=== PATIENT | female | born 1940 | race Caucasian/White ===

== ENCOUNTER 2020-11-03 16:43 | Inpatient (IN) | payer MEDICARE, OTHER ==
--- NOTE | 2020-11-03 17:49 | ED ---
General Adult HPI - General Stated complaint: fall, rib pain Time Seen by Provider: 11/03/20 17:27 Source: patient, RN/MD (Spoke with transferring physician), EMS, old records reviewed (Review of chart from [place]) Mode of arrival: EMS Limitations: physical limitation - History of Present Illness Initial comments: Patient is a pleasant 79-year-old female presenting to the emergency department following a fall. Patient states incident occurred today at home and getting out of the bathtub. Patient landed on her right ribs. Patient was seen at [facility] and diagnosed with rib fractures. Patient still complains of discomfort. Patient denies any dyspnea. No headache or head injury. No abdominal pain. Patient denies any other areas of concern. Review of Systems ROS Statement: Those systems with pertinent positive or pertinent negative responses have been documented in the HPI. ROS Other: All systems not noted in ROS Statement are negative. Constitutional: Denies: fever Eyes: Denies: eye pain ENT: Denies: ear pain Respiratory: Denies: cough, dyspnea Cardiovascular: Reports: as per HPI Endocrine: Denies: fatigue Gastrointestinal: Denies: abdominal pain Genitourinary: Denies: dysuria Musculoskeletal: Denies: back pain Skin: Denies: rash Neurological: Denies: weakness Past Medical History Past Medical History: Atrial Fibrillation, Hyperlipidemia, Hypertension Past Drug Use History: None Reported General Exam Limitations: physical limitation General appearance: alert, in no apparent distress Head exam: Present: atraumatic, normocephalic Eye exam: Present: normal appearance, PERRL Neck exam: Present: normal inspection. Absent: tenderness Respiratory exam: Present: normal lung sounds bilaterally Cardiovascular Exam: Present: regular rate, normal rhythm GI/Abdominal exam: Present: soft. Absent: tenderness Extremities exam: Present: normal inspection, full ROM. Absent: tenderness Back exam: Present: tenderness (Right lower lateral rib region) Neurological exam: Present: alert Psychiatric exam: Present: normal affect, normal mood Skin exam: Present: normal color Course Vital Signs 11/03/20 17:24 Temperature 98.3 F Pulse Rate 66 Respiratory 20 Rate Blood Pressure 121/60 O2 Sat by Pulse 97 Oximetry Medical Decision Making - Medical Decision Making Case was discussed with Dr. Bolton who states because patient is not activated trauma she can be admitted to medicine. He states he will consult. Case also discussed with practitioner mario Wang for Dr. Maher, who will admit. Disposition Clinical Impression: Fall, Multiple rib fractures Disposition: ADMITTED IP TO THIS HOSP Is patient prescribed a controlled substance at d/c from ED?: No Referrals: Nonstaff,Physician [Primary Care Provider] - 1-2 days Decision Time: 17:59
[2020-11-03] MEDS ORDERED: ACETAMINOPHEN TAB 325 MG TAB PO PRN (18:00)
[2020-11-03] MEDS ORDERED: NALOXONE 0.4 MG/ML 1 ML VIAL IV PRN (18:00)
[2020-11-03] MEDS ORDERED: BACLOFEN 10 MG TAB PO PRN (19:07)
--- NOTE | 2020-11-03 20:03 | XR ---
EXAMINATION TYPE: XR chest 1V portable DATE OF EXAM: 11/03/2020 COMPARISON: NONE HISTORY: Short of breath TECHNIQUE: Maribell view FINDINGS: There is coarsening of the interstitial markings. There is no obvious heart failure. I see no pleural effusion. Heart appears enlarged. Thoracic aorta is atheromatous. There are chest leads. T here is plate fixing the left proximal humerus. There are multiple old right-sided rib fractures. IMPRESSION: Mild probably fibrosis. Mild cardiomegaly. No obvious heart failure.
[2020-11-03] MEDS: HYDROcodone/APAP 5-325MG 1 EACH TAB PO PRN (21:08)
--- NOTE | 2020-11-03 21:14 | HP ---
HISTORY AND PHYSICAL DATE OF SERVICE: 11/03/2020 CHIEF COMPLAINTS: Fall and right rib fracture. HISTORY OF PRESENT ILLNESS: This 79-year-old woman with a past medical history of hypertension, hyperlipidemia, history of atrial fibrillation, being followed by a primary physician elsewhere, was camping in [facility]. The patient apparently fell and hit her right side of the ribs and the right side of the chest. The patient was taken to [facility], where the patient was found to have multiple rib fractures. The patient is currently medicated, unable to give a coherent history. The patient was apparently trying to get out of the bathtub. Because of severe pain and other difficulties, the patient was sent to [facility] for further evaluation and treatment. The patient is unable to give a coherent history; most of the history is taken from my discussion with staff and discussion with the ER physician and review of the chart. PAST MEDICAL HISTORY: Atrial fibrillation, hypertension, hyperlipidemia. HOME MEDICATIONS: 1. Ultram 50 mg q.8. 2. Torsemide. 4. Cozaar. 5. Vimpat. 6. Crestor. 7. Toprol-XL. 8. Neurontin. 9. Lexapro. 10.Eliquis. 11.Lioresal. 13.Ecotrin. ALLERGIES: CORTISONE and PENICILLIN. Family history, social history, review of systems could not be taken. PHYSICAL EXAMINATION: Patient is stuporous, sedated with medication. Pulse 65, blood pressure 126/58, respiration 20, temperature 98.3, pulse ox 98% on room air. HEENT: Conjunctivae normal. Oral mucosa moist. NECK: No jugular venous distention. No carotid bruit. No lymph node enlargement. CARDIOVASCULAR: S1, S2 muffled. RESPIRATION: Breath sounds diminished at the bases. A few scattered rhonchi and crackles. ABDOMEN: Soft, obese, non-tender. LEGS: No edema. No swelling. NERVOUS SYSTEM: Nervous system could not be examined completely. SKIN: No ulcer, rash, bleeding. JOINTS: No active deforming arthropathy. LABS: Labs from previous hospital reviewed. ASSESSMENT: 1. Fall and multiple contusions as well as multiple right rib fractures with severe pain. 2. Change in mental status, metabolic encephalopathy, multifactorial. 3. Possible syncope, possibly vasovagal. Rule out seizure disorder. 4. History of atrial fibrillation. 5. Hypertension. 6. Left bundle branch block on EKG. 7. Hyperlipidemia. 8. Obesity with body mass index of 32.3. 9. FULL CODE. RECOMMENDATIONS AND DISCUSSION: In this 79-year-old woman who presented with multiple complex medical issues, we will monitor the patient closely, continue the current medications, continue with symptomatic treatment. I would recommend surgical evaluation for rib fractures as well as cardiology evaluation. Neurology also will be consulted. Resume the home medications. Symptomatic treatment. Prognosis is guarded because of the multiple complex medical issues. Further recommendations to follow. MMODL / IJN: [id number] / HAKEEM
[2020-11-03] MEDS: GABAPENTIN 100 MG CAP PO SCH (23:00)
[2020-11-03] MEDS: LACOSAMIDE 150 MG TABLET PO SCH (23:00)
[2020-11-03] MEDS: ATORVASTATIN 20 MG TAB PO SCH (23:00)
[2020-11-03] MEDS: SODIUM CHLORIDE 0.9% 1,000 ML IV SCH (23:06)
[2020-11-04] MEDS: HYDROcodone/APAP 5-325MG 1 EACH TAB PO PRN ×3 (01:49→20:54)
--- NOTE | 2020-11-04 07:23 | XR ---
EXAMINATION TYPE: XR chest 2V DATE OF EXAM: 11/04/2020 COMPARISON: Chest Radiograph November 04, 2019 HISTORY: Chest trauma TECHNIQUE: Frontal and lateral views of the chest are obtained. FINDINGS: Plate and screw fixation of left proximal humerus. Mildly enlarged heart, stable. Pulmonary vasculature is less prominent compared to the prior study. B lunting of the costophrenic angles and posterior sulci. No consolidation or pneumothorax. IMPRESSION: Cardiomegaly with tiny effusions.
[2020-11-04] MEDS: TORSEMIDE 20 MG TAB PO SCH (08:56)
[2020-11-04] MEDS: METOPROLOL SUCCINATE (ER) 25 MG TAB.ER.24H PO SCH (08:56)
[2020-11-04] MEDS: ASPIRIN 81 MG PO SCH (08:57)
[2020-11-04] MEDS: SPIRONOLACTONE 25 MG TAB PO SCH (08:57)
[2020-11-04] MEDS: LOSARTAN 25 MG TAB PO SCH (08:57)
[2020-11-04] MEDS: ESCITALOPRAM 10 MG TAB PO SCH (08:57)
[2020-11-04] MEDS: LACOSAMIDE 150 MG TABLET PO SCH ×2 (08:58→20:54)
--- NOTE | 2020-11-04 10:21 | P.GSCN ---
History of Present Illness Consult date: 11/04/20 History of present illness: 79-year-old female presented to the emergency department as a transfer from an outside facility after a fall. The patient states that she was trying to climb out of the bathtub and fell onto her right side. She denies hitting her head and denies any memory loss during this time period. She states that recently, she has had multiple falls. On workup, patient was found to have multiple rib fractures of the right chest. There is no evidence of pneumothorax. Patient has also had repeat chest x-ray this morning with no evidence of pneumothorax. Patient states that she is on home O2 and is currently on 2 L of oxygen. She denies any shortness of breath at this time. She states that she lives at home with her daughter. She does have history of atrial fibrillation and is on anticoagulation. There is some ecchymosis noted on the right flank. Otherwise, patient has no complaints at this time. She denies any pain in her extremities or any headache. Review of Systems All systems: negative Past Medical History Past Medical History: Atrial Fibrillation, Heart Failure, Hyperlipidemia, Hypertension History of Any Multi-Drug Resistant Organisms: None Reported Past Surgical History: Heart Catheterization Additional Past Surgical History / Comment(s): EJ 40% per daughter Smoking Status: Former smoker Past Drug Use History: None Reported Medications and Allergies Home Medications Medication Instructions Recorded Confirmed Type Alendronate Sodium [Binosto] 70 mg PO WEEKLY 11/03/20 11/03/20 History Apixaban [Eliquis] 5 mg PO BID 11/03/20 11/03/20 History Aspirin EC [Ecotrin Low Dose] 81 mg PO DAILY 11/03/20 11/03/20 History Baclofen [Lioresal] 10 mg PO BID PRN 11/03/20 11/03/20 History Escitalopram [Lexapro] 10 mg PO DAILY 11/03/20 11/03/20 History Gabapentin [Neurontin] 200 mg PO HS 11/03/20 11/03/20 History Lacosamide [Vimpat] 150 mg PO BID 11/03/20 11/03/20 History Losartan Potassium [Cozaar] 12.5 mg PO DAILY 11/03/20 11/03/20 History Metoprolol Succinate [Toprol XL] 12.5 mg PO DAILY 11/03/20 11/03/20 History Rosuvastatin Calcium [Crestor] 40 mg PO HS 11/03/20 11/03/20 History Spironolactone [Aldactone] 25 mg PO DAILY 11/03/20 11/03/20 History Torsemide [Demadex] 10 mg PO DAILY 11/03/20 11/03/20 History traMADol HCL 50 mg PO Q8H PRN 11/03/20 11/03/20 History Allergies Allergy/AdvReac Type Severity Reaction Status Date / Time cortisone Allergy Unknown Unknown Verified 11/03/20 18:30 Penicillins Allergy Unknown Unknown Verified 11/03/20 18:29 Surgical - Exam Osteopathic Statement: *. No significant issues noted on an osteopathic structural exam other than those noted in the History and Physical/Consult. Vital Signs Temp Pulse Resp BP Pulse Ox 98.3 F 66 20 121/60 97 11/03/20 17:24 11/03/20 17:24 11/03/20 17:24 11/03/20 17:24 11/03/20 17:24 - General well developed, well nourished, no distress - Eyes PERRL, normal ocular movement - ENT normal pinna, normal nares, normal mucosa - Neck trachea midline - Respiratory Right posterior chest with ecchymosis normal respiratory effort - Abdomen No ecchymosis Abdomen: soft, non tender - Neurologic normal coordination, normal sensation - Musculoskeletal normal gait - Psychiatric oriented to time, oriented to person, oriented to place Assessment and Plan Plan: 79-year-old female with a transfer from outside facility secondary to rib fractures and atrial fibrillation. She was not an activated trauma. Patient is admitted for workup for recent falls. For rib fracture, we will treat with narcotics, Lidoderm patch and incentive spirometry. We will evaluate how the patient is doing with this regimen prior to adding any NSAIDs. I recommend holding anticoagulation for 24 hours as the patient is developing ecchymosis. Repeat chest x-ray was evaluated and there is no pneumothorax. Continue medical management for workup on recent recurrent falls and await recommendations from cardiology and pulmonology.
[2020-11-04 12:03] LABS: Basophils # (A) 0.03 X 10*3/uL (0.00-0.10); Basophils % (A) 0.3 %; Eosinophils # (A) 0.23 X 10*3/uL (0.04-0.35); Eosinophils % (A) 2.1 %; HCT 27.1 % (37.2-46.3); HGB 8.4 g/dL (12.0-15.0); Lymphocytes # (A) 1.38 X 10*3/uL (0.90-5.00); Lymphocytes % (A) 12.4 %; MCH 31.8 pg (27.0-32.0); MCV 102.7 fL (80.0-97.0); Mean Platelet Volume 10.1 fL (9.5-12.2); Monocytes % (A) 8.1 %; Neutrophils # (A) 8.54 X 10*3/uL (1.80-7.70); Neutrophils % (A) 76.7 %; Platelet Count 191 X 10*3/uL (140-440); RBC 2.64 X 10*6/uL (4.10-5.20); RDW 16.4 % (11.5-14.5); WBC 11.12 X 10*3/uL (4.50-10.00)
--- NOTE | 2020-11-04 12:11 | P.PN ---
Subjective Progress Note Date: 11/04/20 Principal diagnosis: Fall and right rib fracture 79-year-old female with a past medical history of hypertension, hyperlipidemia, history of atrial fibrillation who was camping in [facility] apparently fell while trying to get out of the bathtub and hit her right side of the chest. The patient was taken to [facility] grade she was found to have multiple that if fractures and eventually transferred to [facility] for further evaluation and treatment. On 11/04/2020- patient is comfortably lying in bed appears to be in pain because of the right sided rib fractures. She states taken and a deep breath is causing pain on the right side of the chest. She denies having any cough or difficulty in breathing. She denies having any fevers chills or rigors. Patient denies having any abdominal pain nausea vomiting or diarrhea. No dysuria or hematuria. Patient's vitals from this morning temperature 97.7, heart rate 60, respiratory 16, blood pressure 110/60, saturating at 98% on 2 L of oxygen. Objective - Vital Signs Vital signs: Vital Signs Temp 97.7 F 11/04/20 02:27 Pulse 60 11/04/20 02:27 Resp 16 11/04/20 02:27 BP 110/60 11/04/20 02:27 Pulse Ox 98 11/04/20 02:27 Intake & Output 11/03/20 11/04/20 11/04/20 18:59 06:59 18:59 Output Total 300 Balance -300 Weight 90.718 kg 90.718 kg Output: Urine 300 - Exam GENERAL EXAM GEN. APPEARANCE: alert, in no apparent distress HE ENT: No pallor. No icterus. RESPIRATORY EXAM: Shallow breathing. No wheezes or crackles. CARDIOVASCULAR EXAM: S1-S2 heard. No additional sounds. GI/ABDOMINAL EXAM: soft, normal bowel sounds. EXTREMITIES EXAM: No edema. NEUROLOGICAL EXAM: alert, oriented X2-3, no focal deficits. PSYCHIATRIC EXAM: normal affect, normal mood SKIN EXAM: No rash. - Labs CBC & Chem 7: 11/04/20 08:25 Assessment and Plan Assessment: ASSESSMENT Fall with multiple contusions and multiple right sided rib fractures with severe pain Possible syncope,? Vasovagal episode Congestive heart failure, systolic not in acute exacerbation History of atrial fibrillation and flutter Left bundle-branch block on EKG Hypertension Hyperlipidemia Obesity with BMI of 32.3 PLAN: Patient is currently being treated with pain medications for the severe pain she has because of multiple right-sided rib fractures. Patient has been restarted on home medications. Spoke with her daughter over the phone, Dr. rice the patient was admitted at another facility a few weeks back for atrial fibrillation and diagnosed with congestive heart failure. she mentions th at the patient was discharged from the [facility] and she was supposed to get a repeat echocardiogram. So cardiology has been consulted. Neurology, surgery, anesthesia services have been consulted. Prognosis is guarded because of chronic multiple medical conditions. This was discussed in detail with the patient's daughter over the phone. Further recommendations depending on the progress of the patient.
[2020-11-04] MEDS: LIDOCAINE 5% PATCH TOPICAL SCH (12:29)
--- NOTE | 2020-11-04 15:43 | P.CNNES ---
History of Present Illness Consult date: 11/04/20 Requesting physician: Marita Maher Reason for Consult: fall syncope vs seizure History of Present Illness: As is a 79-year-old woman with medical history of seizure, atrial fibrillation on eliquis, chronic lower back pain, hypertension, hyperlipidemia who presented emergency department on the 11/03/2020 for a fall. Patient is accompanied with her daughter who is at bedside. Per patient she was in her trailor in [facility] and fell while trying to get out of bath and hit the right side of the chest. She denies loss of consciousness, urinary or bowel incontinence or tongue bite. She denies any auras. As a result she was taken to the [facility] and was found to have multiple rib fractures which eventually she was transferred to [facility] for further evaluation and treatment. Per the daugter the patient has been having recurrent falls. She had a fall in a month ago, August 2020 and other previoius falls in the past. She said she falls and trips over things, trips on dog toys or things on the floor and does not pay attention. She denies legs giving out. Denies any aura prior to ep isode. Denies any loss of consciousness after the fall or prior, tongue bite or urinary or bowel incontinence. The patient stated she feels light headed while going from lying to sitting or standing position. She denies history of diabetes. Of note she was diagnosed with seizure about couple years ago and follows-up with a neurologist (Dr. Garcia) and she had all seizure work-up EEG and MRI br ain. The patient does not have any clinical symptoms and is on Vimpat 150mg bid. She was notified that she is stable electrographically since on Vimpat 150mg bid. She had falls and worked-up in the past was found she had seizure and then recently after fall she was found to have Afib at outside facility and recently started on Eliquis. Of note she had chronic lower back pain. Some of the workup in our facility consisted of: Initial vital signs his blood pressure of 121/60, heart rate of 66, respiratory of 20, temperature of 98.3 Fahrenheit oral and pulse ox of 97% on 2 L of nasal cannula. Since the patient has been on facility the patient has been afebrile. CBC with differential is a white blood cell is slightly elevated over 11.1 thousand, MCV is also slightly elevated of 102.7, hemoglobin of 8.4 which is considered the low the normal supposed to be between 12-15 and I'm not sure with the patient's hemoglobin baseline. Review of Systems Review of system: The 12 point system was reviewed and apparent positive and negative per HPI. Past Medical History Past Medical History: Atrial Fibrillation, Heart Failure, Hyperlipidemia, Hypertension History of Any Multi-Drug Resistant Organisms: None Reported Past Surgical History: Heart Catheterization Additional Past Surgical History / Comment(s): EJ 40% per daughter Smoking Status: Former smoker Past Drug Use History: None Reported Medications and Allergies Home Medications Medication Instructions Recorded Confirmed Type Alendronate Sodium [Binosto] 70 mg PO WEEKLY 11/03/20 11/03/20 History Apixaban [Eliquis] 5 mg PO BID 11/03/20 11/03/20 History Aspirin EC [Ecotrin Low Dose] 81 mg PO DAILY 11/03/20 11/03/20 History Baclofen [Lioresal] 10 mg PO BID PRN 11/03/20 11/03/20 History Escitalopram [Lexapro] 10 mg PO DAILY 11/03/20 11/03/20 History Gabapentin [Neurontin] 200 mg PO HS 11/03/20 11/03/20 History Lacosamide [Vimpat] 150 mg PO BID 11/03/20 11/03/20 History Losartan Potassium [Cozaar] 12.5 mg PO DAILY 11/03/20 11/03/20 History Metoprolol Succinate [Toprol XL] 12.5 mg PO DAILY 11/03/20 11/03/20 History Rosuvastatin Calcium [Crestor] 40 mg PO HS 11/03/20 11/03/20 History Spironolactone [Aldactone] 25 mg PO DAILY 11/03/20 11/03/20 History Torsemide [Demadex] 10 mg PO DAILY 11/03/20 11/03/20 History traMADol HCL 50 mg PO Q8H PRN 11/03/20 11/03/20 History Allergies Allergy/AdvReac Type Severity Reaction Status Date / Time cortisone Allergy Unknown Unknown Verified 11/03/20 18:30 Penicillins Allergy Unknown Unknown Verified 11/03/20 18:29 Physical Examination - Vital Signs Vital Signs: Vital Signs Temp Pulse Pulse Resp BP BP Pulse Ox 11/04/20 02:27 97.7 F 60 16 110/60 98 11/03/20 23:10 16 11/03/20 23:05 98.4 F 63 17 131/67 99 11/03/20 20:00 64 18 118/59 96 11/03/20 18:18 65 20 126/58 98 11/03/20 17:24 98.3 F 66 20 121/60 97 Intake and Output 11/03/20 11/04/20 11/04/20 22:59 06:59 14:59 Output Total 300 Balance -300 Output: Urine 300 Other: Weight 90.718 kg GENERAL: The patient is lying in bed and is mild to moderate acute distress. CHEST: The heart rate is regular rate rhythm. No murmurs to auscultation. LUNG: She is wheezing. Not labored breathing. ABDOMEN/GI: Bowel sounds present in all 4 quadrants. No tenderness to palpation throughout. NEUROLOGICAL: Higher mental function: The patient is awake, alert, oriented to self,she stated she was in the hospital but did not know the name. She is oriented to month and with options correctly chose the year. patient is able to name objects correctly. Patient is following commands. No aphasia and no neglect. Cranial nerves: The pupils are round, equal and reactive to light and accommodation. Visual reyes are full to confrontation throughout. Extraocular movement is intact no nystagmus is noted. Facial sensation is normal to touch throughout. The facial strength is normal throughout. Hearing is moderately decreased l bilaterally to hand rub. Tongue is midline and moved [id number] without any difficulty. No dysarthria is noted. Shoulder shrug is normal bilaterally. Motor: Gait is deferred because of patient's pain. The strength is 5 over 5 throughout upper while lower is able to lift above gravity without drift. Normal tone and bulk. Cerebellum: Normal finger to nose bilaterally. Sensation: Sensation is normal to touch throughout. Reflexes (right/left): 2+ throughout upper while lowers are 1+. Plantars are downgoing bilaterally. Results - Laboratory Findings CBC and BMP: 11/04/20 08:25 11/04/20 08:25 Abnormal Lab Findings: Abnormal Labs 11/04/20 08:25 WBC 11.12 H RBC 2.64 L Hgb 8.4 L Hct 27.1 L MCV 102.7 H MCHC 31.0 L RDW 16.4 H Neutrophils # 8.54 H Assessment and Plan Assessment: * Acute Fall leading up to multiple rib fractures (this episode seems mechanical fall--she slipped in the shower) * Recurrent falls. Unsure etiology at this time (but denies any urinary, bowel incontinence, loss of consciousness or tongue bite). she said she trips on things but at same time feels light headed going from sitting to standing position, so rule out orthostatic hypotension. In the past she said after a fall she was discovered she had ?seizure and later after a fall she was told she has Atrial fibrillation * History of seizure (diagnosed a couple years back and is on Vimpat 150mg 1 tab bid) * Atrial fibrillation on eliquis * Hyperlipidemia * Hypertension Plan: * I ordered orthostatic vitals (states she feels light headed when she get up). * Ordered vitamin B12, folate since patient has macrocytic anemic. Ordered TSH and hemoglobin A1c. To rule-out causes of neuropathy that can cause falls. * Patient had that seizure workup in the past and she follows up with a neurologist (Dr. Garcia). The daughter will possibly seek another opinion as outpatient about her seizure (whether she truly has seizures or not). I wrote a prescription for 2-1/2 hour EEG as an ambulatory (the EEG will cooridante it). If the patient is interested she can follow-up with our epilepsy attending (Dr. Bib Hurtado). * Possibly consider repeating MRI of the brain and the getting MRI of cervical and the lumbar for further evaluation if there is any component for her falls and neck could be done as an outpatient (patient had MRI Brain and MRI Lumbar in the past). * Every 4 hours neuro checks * Consulted PT and OT for gait training. * I recommend to avoid any narcotic/sedative that affect the patient mentation if possible. * On cardiac monitoring * Cardiology team is consulted. * Surgery team is on board * We'll defer the rest of the medical management to the primary team. The plan is discussed with the patient and her daughter who is at bedside. Thank you for the consultation. Suleman Nelson MD Neuro-Hospitalist Time with Patient: Greater than 30
[2020-11-04] MEDS: SODIUM CHLORIDE 0.9% 1,000 ML IV SCH (16:09)
[2020-11-04 17:14] LABS: Albumin 3.7 g/dL (3.5-5.0); Albumin/Globulin Ratio 1.2; Calcium 9.2 mg/dL (8.4-10.2); Potassium 4.8 mmol/L (3.5-5.1); Total Bilirubin 0.4 mg/dL (0.2-1.3); Total Protein 6.7 g/dL (6.3-8.2)
[2020-11-04] MEDS: traMADol 50 MG TAB PO PRN (17:57)
[2020-11-04] MEDS: GABAPENTIN 100 MG CAP PO SCH (20:54)
[2020-11-04] MEDS: ATORVASTATIN 20 MG TAB PO SCH (20:54)
[2020-11-04 22:41] LABS: BUN/Creat Ratio 28.18 Ratio (12.00-20.00)
[2020-11-04 22:59] LABS: Hemoglobin A1C 5.3 % (4.0-6.0)
[2020-11-05] MEDS: IPRATROPIUM-ALBUTEROL 3 ML NEB INHALATION PRN ×4 (05:01→16:59)
[2020-11-05] MEDS: HYDROcodone/APAP 5-325MG 1 EACH TAB PO PRN ×3 (06:28→20:49)
[2020-11-05] MEDS: LIDOCAINE 5% PATCH TOPICAL SCH (08:10)
[2020-11-05] MEDS: TORSEMIDE 20 MG TAB PO SCH (08:10)
[2020-11-05] MEDS: LOSARTAN 25 MG TAB PO SCH (08:11)
[2020-11-05] MEDS: METOPROLOL SUCCINATE (ER) 25 MG TAB.ER.24H PO SCH (08:11)
[2020-11-05] MEDS: ASPIRIN 81 MG PO SCH (08:11)
[2020-11-05] MEDS: ESCITALOPRAM 10 MG TAB PO SCH (08:11)
[2020-11-05] MEDS: SPIRONOLACTONE 25 MG TAB PO SCH (08:11)
[2020-11-05] MEDS: LACOSAMIDE 150 MG TABLET PO SCH ×2 (08:11→20:49)
--- NOTE | 2020-11-05 08:47 | P.CRDCN ---
History of Present Illness Consult date: 11/05/20 Consult reason: atrial fibrillation Chief complaint: Fall with rib fracture History of present illness: This is Sergio So NP dictating a consult on this patient on behalf of Dr. Ray. The patient was interviewed and examined. HPI: Patient is a 79-year-old female that initially presented to the hospital with a fall and a right-sided rib fracture. She has a past medical history includes atrial fibrillation and has been on anticoagulant therapy. Patient reports that she has been falling frequently at home. Cardiology was consult to evaluate the patient and determine the appropriateness of continuing anticoagulant therapy at this time. ROS: [No fever, chills, or rigors] [Reports cough, no phlegm, or expectoration] [no nausea, vomiting, or diarrhea] [no hematuria, dysuria] [Patient has pain in her right lateral chest and flank due to a fall] [no strokes or seizures] [no skin lesions] EXAMINATION: CARDIOVASCULAR: Heart rate and rhythm is irregularly irregular at approximately 70 beats a minute. No clicks, murmurs, or rubs noted. Patient has no peripheral edema. Peripheral pulses are present and palpable. LUNGS: Patient has fine crackles throughout her lung reyes, along with expiratory wheezing. Chest expansion symmetrical. REVIEW OF LABS, ECG & MEDICAL DATA: LABS: Hemoglobin 8.4, sodium 138, potassium 4.8, B1 31, creatinine 1.01 EKG: Atrial fibrillation IMPRESSION/PLAN: 1. Chronic atrial fibrillation-it is medically indicated to have anticoagulation on this patient, however there is significant risk at this time. At this time we recommend patient should hold anticoagulation for at least a week or until follow-up with primary care provider. Fall risk assessment should be assessed to determine patient's risk of major bleeding complications due to falls. Thank you for consult illness allowing us to see this patient. Past Medical History Past Medical History: Atrial Fibrillation, Heart Failure, Hyperlipidemia, Hypertension History of Any Multi-Drug Resistant Organisms: None Reported Past Surgical History: Heart Catheterization Additional Past Surgical History / Comment(s): EJ 40% per daughter Smoking Status: Former smoker Past Drug Use History: None Reported Medications and Allergies Home Medications Medication Instructions Recorded Confirmed Type Alendronate Sodium [Binosto] 70 mg PO WEEKLY 11/03/20 11/03/20 History Apixaban [Eliquis] 5 mg PO BID 11/03/20 11/03/20 History Aspirin EC [Ecotrin Low Dose] 81 mg PO DAILY 11/03/20 11/03/20 History Baclofen [Lioresal] 10 mg PO BID PRN 11/03/20 11/03/20 History Escitalopram [Lexapro] 10 mg PO DAILY 11/03/20 11/03/20 History Gabapentin [Neurontin] 200 mg PO HS 11/03/20 11/03/20 History Lacosamide [Vimpat] 150 mg PO BID 11/03/20 11/03/20 History Losartan Potassium [Cozaar] 12.5 mg PO DAILY 11/03/20 11/03/20 History Metoprolol Succinate [Toprol XL] 12.5 mg PO DAILY 11/03/20 11/03/20 History Rosuvastatin Calcium [Crestor] 40 mg PO HS 11/03/20 11/03/20 History Spironolactone [Aldactone] 25 mg PO DAILY 11/03/20 11/03/20 History Torsemide [Demadex] 10 mg PO DAILY 11/03/20 11/03/20 History traMADol HCL 50 mg PO Q8H PRN 11/03/20 11/03/20 History Allergies Allergy/AdvReac Type Severity Reaction Status Date / Time cortisone Allergy Unknown Unknown Verified 11/03/20 18:30 Penicillins Allergy Unknown Unknown Verified 11/03/20 18:29 Physical Exam Vitals: Vital Signs Temp Pulse Pulse Resp BP Pulse Ox 11/05/20 05:14 70 11/05/20 05:01 68 11/05/20 04:44 99.4 F 69 18 110/53 97 11/05/20 02:00 97.6 F 70 16 108/52 91 L 11/04/20 20:00 98.4 F 73 16 124/70 93 L 11/04/20 14:00 98.4 F 70 16 106/56 95 Intake and Output 11/04/20 11/05/20 11/05/20 22:59 06:59 14:59 Intake Total 540 220 Output Total 600 Balance -60 220 Intake: Intake, IV Titration 220 Amount Sodium Chloride 0.9% 1, 220 000 ml @ 20 mls/hr IV . Q24H [facility] Rx#:[id number] Oral 540 Output: Urine 600 Results 11/04/20 08:25 11/04/20 08:25 Cardiac Enzymes 11/04/20 Range/Units 08:25 AST 36 (14-36) U/L CBC 11/04/20 Range/Units 08:25 WBC 11.12 H (4.50-10.00) X 10*3/uL RBC 2.64 L (4.10-5.20) X 10*6/uL Hgb 8.4 L (12.0-15.0) g/dL Hct 27.1 L (37.2-46.3) % Plt Count 191 (140-440) X 10*3/uL Comprehensive Metabolic Panel 11/04/20 Range/Units 08:25 Sodium 138 (137-145) mmol/L Potassium 4.8 (3.5-5.1) mmol/L Chloride 107 (98-107) mmol/L Carbon Dioxide 26 (22-30) mmol/L BUN 31 H (7-17) mg/dL Creatinine 1.01 (0.52-1.04) mg/dL Glucose 139 H (74-99) mg/dL Calcium 9.2 (8.4-10.2) mg/dL AST 36 (14-36) U/L ALT 18 (4-34) U/L Alkaline Phosphatase 76 (38-126) U/L Total Protein 6.7 (6.3-8.2) g/dL Albumin 3.7 (3.5-5.0) g/dL Current Medications Generic Name Dose Route Start Last Admin Trade Name Freq PRN Reason Stop Dose Admin Acetaminophen 650 mg 11/03/20 18:00 Acetaminophen Tab 325 Mg Tab PO Q6HR PRN Mild Pain Or Fever > 101 Hydrocodone Bitart/Acetaminophen 2 each 11/03/20 18:00 11/04/20 20:54 Hydrocodone/Apap 5-325mg 1 Each Tab PO 2 each Q4HR PRN Administration Pain Scale 6 to 10 Hydrocodone Bitart/Acetaminophen 1 each 11/03/20 18:00 11/05/20 06:28 Hydrocodone/Apap 5-325mg 1 Each Tab PO 1 each Q4HR PRN Administration Pain Scale 2 to 5 Albuterol/Ipratropium 3 ml 11/05/20 04:29 11/05/20 05:01 Ipratropium-Albuterol 3 Ml Neb INHALATION 3 ml RT-QID PRN Administration Shortness Of Breath Or Wheezing Aspirin 81 mg 11/04/20 09:00 11/05/20 08:11 Aspirin 81 Mg PO 81 mg DAILY JAMES Administration Atorvastatin Calcium 20 mg 11/03/20 21:00 11/04/20 20:54 Atorvastatin 20 Mg Tab PO 20 mg HS JAMES Administration Baclofen 10 mg 11/03/20 19:07 Baclofen 10 Mg Tab PO BID PRN Muscle Pain Escitalopram Oxalate 10 mg 11/04/20 09:00 11/05/20 08:11 Escitalopram 10 Mg Tab PO 10 mg DAILY JAMES Administration Gabapentin 200 mg 11/03/20 21:00 11/04/20 20:54 Gabapentin 100 Mg Cap PO 200 mg HS JAMES Administration Sodium Chloride 1,000 mls @ 20 mls/hr 11/03/20 18:00 11/04/20 16:09 Saline 0.9% IV Not Given .Q24H JAMES Lacosamide 150 mg 11/03/20 21:00 11/05/20 08:11 Lacosamide 150 Mg Tablet PO 150 mg BID JAMES Administration Lidocaine 1 patch 11/04/20 10:30 11/05/20 08:10 Lidocaine 5% Patch TOPICAL 1 patch DAILY JAMES Administration Protocol Losartan Potassium 12.5 mg 11/04/20 09:00 11/05/20 08:11 Losartan 25 Mg Tab PO 12.5 mg DAILY JAMES Administration Metoprolol Succinate 12.5 mg 11/04/20 09:00 11/05/20 08:11 Metoprolol Succinate (Er) 25 Mg Tab.Er.24h PO 12.5 mg DAILY JAMES Administration Naloxone HCl 0.2 mg 11/03/20 18:00 Naloxone 0.4 Mg/Ml 1 Ml Vial IV Q2M PRN Opioid Reversal Non-Formulary Medication 70 mg 11/10/20 09:00 Alendronate Sodium [Binosto] PO WEEKLY JAMES Spironolactone 25 mg 11/04/20 09:00 11/05/20 08:11 Spironolactone 25 Mg Tab PO 25 mg DAILY JAMES Administration Torsemide 10 mg 11/04/20 09:00 11/05/20 08:10 Torsemide 20 Mg Tab PO 10 mg DAILY JAMES Administration Tramadol HCl 50 mg 11/03/20 19:07 11/04/20 17:57 Tramadol 50 Mg Tab PO 50 mg Q8H PRN Administration Pain Intake and Output 11/04/20 11/05/20 11/05/20 22:59 06:59 14:59 Intake Total 540 220 Output Total 600 Balance -60 220 Intake: Intake, IV Titration 220 Amount Sodium Chloride 0.9% 1, 220 000 ml @ 20 mls/hr IV . Q24H [facility] Rx#:[id number] Oral 540 Output: Urine 600 11/04/20 08:25 11/04/20 08:25
--- NOTE | 2020-11-05 09:16 | P.PN ---
Subjective Progress Note Date: 11/05/20 Patient seen and examined at bedside. She is groggy and slightly confused this morning. She is receiving treatment from respiratory therapy. Denies any new pain. Objective - Vital Signs Vital signs: Vital Signs Temp 98.4 F 11/05/20 08:00 Pulse 72 11/05/20 08:59 Resp 20 11/05/20 08:00 BP 113/53 11/05/20 08:00 Pulse Ox 98 11/05/20 08:00 Intake & Output 11/04/20 11/05/20 11/05/20 18:59 06:59 18:59 Intake Total 700 220 Output Total 900 Balance -200 220 Intake: Intake, IV Titration 160 220 Amount Sodium Chloride 0.9% 1, 160 220 000 ml @ 20 mls/hr IV . Q24H [facility] Rx#:[id number] Oral 540 Output: Urine 900 - Constitutional General appearance: Present: cooperative, no acute distress - Respiratory Details: Ecchymosis of right lateral chest and posterior thorax unchanged from yesterday - Musculoskeletal Musculoskeletal: Present: generalized weakness - Labs CBC & Chem 7: 11/04/20 08:25 11/04/20 08:25 Labs: Abnormal Lab Results - Last 24 Hours (Table) 11/04/20 11/04/20 Range/Units 08:25 08:25 WBC 11.12 H (4.50-10.00) X 10*3/uL RBC 2.64 L (4.10-5.20) X 10*6/uL Hgb 8.4 L (12.0-15.0) g/dL Hct 27.1 L (37.2-46.3) % MCV 102.7 H (80.0-97.0) fL MCHC 31.0 L (32.0-37.0) g/dL RDW 16.4 H (11.5-14.5) % Neutrophils # 8.54 H (1.80-7.70) X 10*3/uL BUN 31 H (7-17) mg/dL BUN/Creatinine Ratio 28.18 H (12.00-20.00) Ratio Glucose 139 H (74-99) mg/dL Assessment and Plan Plan: 79-year-old female with a transfer from outside facility secondary to rib fractures and atrial fibrillation. She was not an activated trauma. Patient is admitted for workup for recent falls. - Continue treatment For rib fractures with narcotics, Lidoderm patch and incentive spirometry. - Continue holding anticoagulation. - Patient is slightly confused this morning. She is being followed by neurology. Appreciate recommendations - Continue medical management for workup on recent recurrent falls - Continue with recommendations from cardiology and holding anticoagulation - No plan for surgical intervention at this time
[2020-11-05 11:53] LABS: Folate, Serum 16.1 ng/mL
[2020-11-05] MEDS: traMADol 50 MG TAB PO PRN ×2 (12:47→23:15)
--- NOTE | 2020-11-05 13:28 | P.PN ---
Subjective Progress Note Date: 11/05/20 Patient seen at bedside and she feels about the same today compared to yesterday. Per the patient at nurse there is no neurological events Objective - Vital Signs Vital signs: Vital Signs Temp 98.4 F 11/05/20 08:00 Pulse 68 11/05/20 13:09 Resp 20 11/05/20 08:00 BP 113/53 11/05/20 08:00 Pulse Ox 98 11/05/20 08:00 Intake & Output 11/04/20 11/05/20 11/05/20 18:59 06:59 18:59 Intake Total 700 220 160 Output Total 900 Balance -200 220 160 Intake: Intake, IV Titration 160 220 160 Amount Sodium Chloride 0.9% 1, 160 220 160 000 ml @ 20 mls/hr IV . Q24H [facility] Rx#:[id number] Oral 540 Output: Urine 900 - Exam GENERAL: The patient is lying in bed and is mild to moderate acute distress. NEUROLOGICAL: Higher mental function: The patient is awake, alert, oriented to self,she stated she was in the hospital but did not know the name. She is oriented to month and with options correctly chose the year. patient is able to name objects correctly. Patient is following commands. No aphasia and no neglect. Cranial nerves: The pupils are round, equal and reactive to light and accommodation. Visual reyes are full to confrontation throughout. Extraocular movement is intact no nystagmus is noted. Facial sensation is normal to touch throughout. The facial strength is normal throughout. Hearing is moderately decreased l bilaterally to hand rub. Tongue is midline and moved [id number] without any difficulty. No dysarthria is noted. Shoulder shrug is normal bilaterally. Motor: Gait is deferred because of patient's pain. The strength is 5 over 5 throughout upper while lower is able to lift above gravity without drift. Normal tone and bulk. Cerebellum: Normal finger to nose bilaterally. Sensation: Sensation is normal to touch throughout. Reflexes (right/left): 2+ throughout upper while lowers are 1+. Plantars are downgoing bilaterally. WORK-UP: Vitamin B12 was 1376 which is within normal limits Serum folate is 16.1 which is within normal limits. TSH is 0.265 to within normal limits HbA1c: 5.3 which is within normal limits - Labs CBC & Chem 7: 11/04/20 08:25 11/04/20 08:25 Labs: Abnormal Lab Results - Last 24 Hours (Table) 11/04/20 11/04/20 Range/Units 08:25 08:25 BUN 31 H (7-17) mg/dL BUN/Creatinine Ratio 28.18 H (12.00-20.00) Ratio Glucose 139 H (74-99) mg/dL Vitamin B12 1376.0 H (200.0-944.0) pg/mL Assessment and Plan Assessment: * Acute Fall leading up to multiple rib fractures (this episode seems mechanical fall--she slipped in the shower) * Recurrent falls. Unsure etiology at this time (but denies any urinary, bowel incontinence, loss of consciousness or tongue bite). she said she trips on things but at same time feels light headed going from sitting to standing position, so rule out orthostatic hypotension. In the past she said after a fall she was discovered she had ?seizure and later after a fall she was told she has Atrial fibrillation * History of seizure (diagnosed a couple years back and is on Vimpat 150mg 1 tab bid) * Atrial fibrillation on eliquis * Hyperlipidemia * Hypertension Plan: * Pending orthostatic vitals to be done (states she feels light headed when she get up. To be done once stable since currently in pain). If abnormal will defer management to the primary and cardiology team (possibly consider salt tab 1mg bid). * Patient had seizure workup in the past and she follows up with a neurologist (Dr. Garcia). The daughter will possibly seek another opinion as outpatient about her seizure (whether she truly has seizures or not). I wrote a prescription for 2-1/2 hour EEG as an ambulatory (the EEG will cooridante it). If the patient is interested she can follow-up with our epilepsy attending (Dr. Bib Hurtado). * Possibly consider repeating MRI of the brain and the getting MRI of cervical and the lumbar for further evaluation if there is any component for her falls and neck could be done as an outpatient (patient had MRI Brain and MRI Lumbar in the past). * Every 4 hours neuro checks * Consulted PT and OT for gait training. * I recommend to avoid any narcotic/sedative that affect the patient mentation if possible. * On cardiac monitoring * Cardiology team is consulted. * Surgery team is on board * We'll defer the rest of the medical management to the primary team. The plan is discussed with the patient's nurse. There is no further neurological work-up. Neurology will sign off. Please reconsult if needed. Suleman Nelson MD Neuro-Hospitalist Time with Patient: Less than 30
--- NOTE | 2020-11-05 16:03 | P.PN ---
Progress Note - Text Progress Note Date: 11/05/20 Informed by nursing that patient's daughter was present and had many questions that she would like answered. I did present to the room. Patient is daughter and granddaughter were in the room. Patient inquired on the current treatment regimen for the patient. She is concerned about the patient's pain level. Currently, the patient is being treated with lidocaine patch and oral and IV narcotics. She inquired about NSAIDs. She was informed that toradol and strong NSAIDs have been avoided based on the patient's creatinine of 1 and age of 79 to prevent any risk of acute kidney injury. The patient's daughter also inquired about incentive spirometry use. I did explain to the patient's daughter that recommendation is for 10 uses per hour. Patient's daughter is requesting that nurse comes into the room every hour to push the patient to do this. She inquired about rib taping as part of the treatment. Currently, kinesiology rib taping is not part of the standard protocol in treatment for rib fractures and the patient's daughter was informed of this. This service is not provided at this institution. She was also notified that anesthesia has also been consulted for possibility of a rib block. We are awaiting evaluation. I spent approximately 20 minutes in the room with the patient's daughter answering all of her questions. She seems satisfied with the answers. Please call with any further questions.
[2020-11-05] MEDS: HEPARIN SODIUM,PORCINE/PF 5,000 UNIT/0.5 ML SYRINGE SQ SCH ×2 (16:54→23:08)
[2020-11-05] MEDS: SODIUM CHLORIDE 0.9% 1,000 ML IV SCH (16:54)
[2020-11-05] MEDS: ATORVASTATIN 20 MG TAB PO SCH (20:50)
[2020-11-05] MEDS: GABAPENTIN 100 MG CAP PO SCH (20:50)
--- NOTE | 2020-11-06 01:55 | P.PN ---
Subjective Progress Note Date: 11/05/20 Principal diagnosis: Fall and multiple right rib fractures 79-year-old female with a past medical history of hypertension, hyperlipidemia, history of atrial fibrillation who was camping in [facility] apparently fell while trying to get out of the bathtub and hit her right side of the chest. The patient was taken to [facility] grade she was found to have multiple that if fractures and eventually transferred to [facility] for further evaluation and treatment. On 11/04/2020- patient is comfortably lying in bed appears to be in pain because of the right sided rib fractures. She states taken and a deep breath is causing pain on the right side of the chest. She denies having any cough or difficulty in breathing. She denies having any fevers chills or rigors. Patient denies having any abdominal pain nausea vomiting or diarrhea. No dysuria or hematuria. Patient's vitals from this morning temperature 97.7, heart rate 60, respiratory 16, blood pressure 110/60, saturating at 98% on 2 L of oxygen. On 11/05/2020 -patient is lying in bed and complaining of right-sided chest pain due to multiple rib fractures. Patient states her scale 6 out of 10 with pain medications. Initially at the time of admission patient's pain scale was 10 out of 10. Patient denies having any difficulty in breathing, but states that it hurts when she takes in a deep breath on the right side. Patient denies having any abdominal pain nausea vomiting or diarrhea. On reviewing the patient's vitals temperature of 97.7, heart rate 75, respiratory rate 19, blood pressure 111/70 saturating at 98% on room air. On reviewing the patient's labs white count of 11.1, hemoglobin 8.4, platelets 191, sodium 138, potassium 4.8, chloride 107, BUN 31, creatinine 1.01 from yesterday. Patient's medications have been reviewed- Active Medications Acetaminophen (Acetaminophen Tab 325 Mg Tab) 650 mg PO Q6HR PRN PRN Reason: Mild Pain Or Fever > 101 Hydrocodone Bitart/Acetaminophen (Hydrocodone/Apap 5-325mg 1 Each Tab) 2 each PO Q4HR PRN PRN Reason: Pain Scale 6 to 10 Last Admin: 11/05/20 20:49 Dose: 2 each Documented by: Hydrocodone Bitart/Acetaminophen (Hydrocodone/Apap 5-325mg 1 Each Tab) 1 each PO Q4HR PRN PRN Reason: Pain Scale 2 to 5 Last Admin: 11/05/20 06:28 Dose: 1 each Documented by: Albuterol/Ipratropium (Ipratropium-Albuterol 3 Ml Neb) 3 ml INHALATION RT-QID PRN PRN Reason: Shortness Of Breath Or Wheezing Last Admin: 11/05/20 16:59 Dose: 3 ml Documented by: Aspirin (Aspirin 81 Mg) 81 mg PO DAILY [facility] Last Admin: 11/05/20 08:11 Dose: 81 mg Documented by: Atorvastatin Calcium (Atorvastatin 20 Mg Tab) 20 mg PO HS [facility] Last Admin: 11/05/20 20:50 Dose: 20 mg Documented by: Baclofen (Baclofen 10 Mg Tab) 10 mg PO BID PRN PRN Reason: Muscle Pain Escitalopram Oxalate (Escitalopram 10 Mg Tab) 10 mg PO DAILY [facility] Last Admin: 11/05/20 08:11 Dose: 10 mg Documented by: Gabapentin (Gabapentin 100 Mg Cap) 200 mg PO HS [facility] Last Admin: 11/05/20 20:50 Dose: 200 mg Documented by: Heparin Sodium (Porcine) (Heparin Sodium,Porcine/Pf 5,000 Unit/0.5 Ml Syringe) 5,000 unit SQ Q8HR [facility] Last Admin: 11/05/20 23:08 Dose: 5,000 unit Documented by: Sodium Chloride (Saline 0.9%) 1,000 mls @ 20 mls/hr IV .Q24H [facility] Last Admin: 11/05/20 16:54 Dose: 20 mls/hr Documented by: Lacosamide (Lacosamide 150 Mg Tablet) 150 mg PO BID [facility] Last Admin: 11/05/20 20:49 Dose: 150 mg Documented by: Lidocaine (Lidocaine 5% Patch) 1 patch TOPICAL DAILY [facility]; Protocol Last Admin: 11/05/20 08:10 Dose: 1 patch Documented by: Losartan Potassium (Losartan 25 Mg Tab) 12.5 mg PO DAILY [facility] Last Admin: 11/05/20 08:11 Dose: 12.5 mg Documented by: Metoprolol Succinate (Metoprolol Succinate (Er) 25 Mg Tab.Er.24h) 12.5 mg PO DAILY [facility] Last Admin: 11/05/20 08:11 Dose: 12.5 mg Documented by: Naloxone HCl (Naloxone 0.4 Mg/Ml 1 Ml Vial) 0.2 mg IV Q2M PRN PRN Reason: Opioid Reversal Non-Formulary Medication (Alendronate Sodium [Binosto]) 70 mg PO WEEKLY [facility] Spironolactone (Spironolactone 25 Mg Tab) 25 mg PO DAILY [facility] Last Admin: 11/05/20 08:11 Dose: 25 mg Documented by: Torsemide (Torsemide 20 Mg Tab) 10 mg PO DAILY [facility] Last Admin: 11/05/20 08:10 Dose: 10 mg Documented by: Tramadol HCl (Tramadol 50 Mg Tab) 50 mg PO Q8H PRN PRN Reason: Pain Last Admin: 11/05/20 23:15 Dose: 50 mg Documented by: Objective - Vital Signs Vital signs: Vital Signs Temp 98.4 F 11/05/20 08:00 Pulse 68 11/05/20 13:09 Resp 20 11/05/20 08:00 BP 113/53 11/05/20 08:00 Pulse Ox 98 11/05/20 08:00 Intake & Output 11/04/20 11/05/20 11/05/20 18:59 06:59 18:59 Intake Total 700 220 160 Output Total 900 Balance -200 220 160 Intake: Intake, IV Titration 160 220 160 Amount Sodium Chloride 0.9% 1, 160 220 160 000 ml @ 20 mls/hr IV . Q24H [facility] Rx#:[id number] Oral 540 Output: Urine 900 - Exam GENERAL EXAM GEN. APPEARANCE: alert, in no apparent distress HE ENT: No pallor. No icterus. RESPIRATORY EXAM: Shallow breathing. No wheezes or crackles. Tenderness of the right chest region. CARDIOVASCULAR EXAM: S1-S2 heard. No additional sounds. GI/ABDOMINAL EXAM: soft, normal bowel sounds. EXTREMITIES EXAM: No edema. NEUROLOGICAL EXAM: alert, oriented X2-3, no focal deficits. PSYCHIATRIC EXAM: normal affect, normal mood SKIN EXAM: No rash. - Labs CBC & Chem 7: 11/04/20 08:25 11/04/20 08:25 Labs: Abnormal Lab Results - Last 24 Hours (Table) 11/04/20 11/04/20 Range/Units 08:25 08:25 BUN 31 H (7-17) mg/dL BUN/Creatinine Ratio 28.18 H (12.00-20.00) Ratio Glucose 139 H (74-99) mg/dL Vitamin B12 1376.0 H (200.0-944.0) pg/mL Assessment and Plan Assessment: ASSESSMENT Fall with multiple contusions and multiple right sided rib fractures with severe pain Possible syncope,? Vasovagal episode Congestive heart failure, systolic not in acute exacerbation History of atrial fibrillation and flutter Left bundle-branch block on EKG Hypertension Hyperlipidemia Obesity with BMI of 32.3 PLAN: Patient is currently being treated with pain medications for the severe pain she has because of multiple right-sided rib fractures.Cardiology has been c onsulted as the patient, as the patient's daughter mentioned that she was admitted and in another facility for atrial fibrillation and was diagnosed with congestive heart failure and I was advised [facility]. Cardiology evaluated the patient today and suggested to hold off on anticoagulation for now. Neurology, surgery, anesthesia services have been consulted. Prognosis is guarded because of chronic multiple medical conditions. Further recommendations depending on the progress of the patient. Overall prognosis is poor due to chronic multiple medical conditions.
[2020-11-06] MEDS: IPRATROPIUM-ALBUTEROL 3 ML NEB INHALATION PRN ×4 (04:14→20:15)
[2020-11-06] MEDS: HYDROcodone/APAP 5-325MG 1 EACH TAB PO PRN ×5 (04:44→23:35)
--- NOTE | 2020-11-06 08:07 | P.PN ---
Subjective Progress Note Date: 11/06/20 During rounds, patient was found down in the bathroom. Patient had fallen from the toilet seat. It does appear that she has hit her head that she does have a hematoma on the left supraorbital area. She is answering questions appropriately. Vital signs are stable. Unclear loss of consciousness. No ad ditional pain complaints at this time. Objective - Vital Signs Vital signs: Vital Signs Temp 97.7 F 11/06/20 02:00 Pulse 76 11/06/20 04:26 Resp 18 11/06/20 02:00 BP 123/55 11/06/20 02:00 Pulse Ox 94 L 11/06/20 02:00 Intake & Output 11/05/20 11/06/20 11/06/20 18:59 06:59 18:59 Intake Total 160 Output Total 1800 Balance 160 -1800 Intake: Intake, IV Titration 160 Amount Sodium Chloride 0.9% 1, 160 000 ml @ 20 mls/hr IV . Q24H JAMES Rx#:[id number] Output: Urine 1800 Other: Voiding Method Toilet Diaper # Voids 2 - Constitutional General appearance: Present: cooperative - EENT EENT Comment(s): Hematoma in the L supra orbital/L forehead area, new - Respiratory Details: No difficulty with respiration, unchanged exam of the chest wall - Gastrointestinal Gastrointestinal Comment(s): Soft, nontender - Musculoskeletal Musculoskeletal: Present: generalized weakness - Psychiatric Psychiatric: Present: appropriate affect - Labs CBC & Chem 7: 11/04/20 08:25 11/04/20 08:25 Labs: Abnormal Lab Results - Last 24 Hours (Table) 11/04/20 Range/Units 08:25 Vitamin B12 1376.0 H (200.0-944.0) pg/mL Assessment and Plan Plan: 79-year-old female with a transfer from outside facility secondary to rib fractures and atrial fibrillation. She was not an activated trauma. Patient is admitted for workup for recent falls. - Patient did have a fall while in the bathroom this morning, new hematoma on the left forehead/left supraorbital area. Head CT has been ordered. - Patient is high fall risk, this was discussed with nursing staff. Fall precautions are ordered. - Continue treatment For rib fractures with narcotics, Lidoderm patch and incentive spirometry. - Continue holding anticoagulation. - Patient's daughter had requested viewing the images herself that were done at the outside facility. These were pulled up for the patient's daughter yesterday and this morning, however the patient's daughter left yesterday prior to viewing the images and she is not at bedside this morning. - Continue medical management for workup on recent recurrent falls - Continue with recommendations from cardiology and holding anticoagulation - No plan for surgical intervention at this time
[2020-11-06] MEDS: HEPARIN SODIUM,PORCINE/PF 5,000 UNIT/0.5 ML SYRINGE SQ SCH ×3 (08:45→23:39)
--- NOTE | 2020-11-06 08:53 | CT ---
EXAMINATION TYPE: CT brain quinn pickard DATE OF EXAM: 11/06/2020 COMPARISON: None HISTORY: Head trauma CT DLP: 1380.2 mGycm Automated exposure control for dose reduction was used. Technique: Examination of the head was done in axial plane without intravenous contrast. Coronal and sagittal reconstructions performed. CT of the cervical spine was obtained in axial plane without intravenous injection of contrast mater ial. Coronal and sagittal reformatted images were obtained from the axial views for evaluation of f ractures, spinal alignment and canal. FINDINGS: Head: There is no evidence of acute intracranial hemorrhage, acute ischemic changes, mass, mass-effect, or extra-axial fluid collection. There is no effacement of cerebral sulci or basal subarachnoid cister ns. There is no hydrocephalus. There is no midline shift. Nettles-white matter distinction is preserv ed. There appears to be a large anterior left frontal and left supraorbital scalp contusion/hematoma teja uring up to 3.0 cm. No underlying calvarial fracture. Visualized orbits and globes appear intact. Mild generalized supratentorial volume loss. Mild patchy periventricular white matter hypodensity sug gesting mild burden of chronic small vessel ischemic disease. Cervical spine: No craniocervical junction abnormality, predental space widening, or prevertebral soft tissue swellin g. Degenerative changes of the C1 dens articulation. Advanced hypertrophic facet and uncovertebral joint arthropathy. Dextro convex curvature of the cervi juan carlos spine. Trace grade 1 anterolisthesis C3-C4 and C7-T1. Moderate disc/endplate degenerative changes especially mid to lower cervical spine. No acute fracture of the cervical spine. Variable moderate to severe neuroforaminal stenoses througho ut. Sagittal and coronal reformatted images confirm above findings. COMBINED IMPRESSION: 1. Sizable left supraorbital and anterior left frontal scalp contusion/hematoma. No acute intracrania l abnormality seen. Mild generalized atrophy and mild burden of chronic small vessel ischemic disease . 2. Moderate to advanced spondylotic changes in the cervical spine. Degenerative grade 1 anterolisthes is C3-C4 and C7-T1. No acute fracture of the cervical spine.
[2020-11-06 09:05] LABS: Basophils # (A) 0.03 X 10*3/uL (0.00-0.10); Basophils % (A) 0.3 %; Eosinophils % (A) 4.4 %; HCT 23.7 % (37.2-46.3); HGB 7.3 g/dL (12.0-15.0); Lymphocytes # (A) 1.56 X 10*3/uL (0.90-5.00); MCH 31.7 pg (27.0-32.0); MCHC 30.8 g/dL (32.0-37.0); Mean Platelet Volume 10.7 fL (9.5-12.2); Monocytes # (A) 0.85 X 10*3/uL (0.20-1.00); Monocytes % (A) 9.3 %; Neutrophils # (A) 6.27 X 10*3/uL (1.80-7.70); Neutrophils % (A) 68.6 %; Platelet Count 185 X 10*3/uL (140-440); RDW 16.4 % (11.5-14.5); WBC 9.15 X 10*3/uL (4.50-10.00)
[2020-11-06] MEDS: SPIRONOLACTONE 25 MG TAB PO SCH (09:52)
[2020-11-06] MEDS: LOSARTAN 25 MG TAB PO SCH (09:52)
[2020-11-06] MEDS: LACOSAMIDE 150 MG TABLET PO SCH ×2 (09:53→21:00)
[2020-11-06] MEDS: TORSEMIDE 20 MG TAB PO SCH (09:53)
[2020-11-06] MEDS: METOPROLOL SUCCINATE (ER) 25 MG TAB.ER.24H PO SCH (09:53)
[2020-11-06] MEDS: ASPIRIN 81 MG PO SCH (09:53)
[2020-11-06] MEDS: ESCITALOPRAM 10 MG TAB PO SCH (09:53)
[2020-11-06] MEDS: LIDOCAINE 5% PATCH TOPICAL SCH (09:59)
[2020-11-06 11:22] LABS: Appearance,Urine Clear (Clear); Bacteria,Urine Occasional /hpf; Bilirubin,Urine Negative (Negative); Blood,Urine Trace (Negative); Color,Urine Light Yellow; Glucose,Urine (UA) Negative (Negative); Ketones,Urine Negative (Negative); Leukocyte Esterase,Urine Negative (Negative); Mucus,Urine Rare /hpf; Nitrite,Urine Negative (Negative); PH, Urine 5.5 (5.0-8.0); Protein,Urine Trace (Negative); RBC,Urine 2 /hpf (0-5); Specific Gravity,Urine 1.014 (1.001-1.035); Squamous Epithelial Cell,Urine <1 /hpf (0-4); Urobilinogen,Urine <2.0 mg/dL (<2.0); WBC,Urine 1 /hpf (0-5)
[2020-11-06 12:34] LABS: African American GFR (CKD) 62.1 (60.0-200.0); Anion Gap 10.7 mmol/L (4.00-12.00); Calcium 8.6 mg/dL (8.7-10.3); Carbon Dioxide 24.3 mmol/L (21.6-31.8); Non-African American GFR(CKD) 53.5 (60.0-200.0); Potassium 4.2 mmol/L (3.5-5.5)
[2020-11-06] MEDS ORDERED: DOCUSATE 100 MG CAP PO PRN (12:51)
--- NOTE | 2020-11-06 14:45 | CT ---
EXAMINATION TYPE: CT facial bones wo con DATE OF EXAM: 11/06/2020 COMPARISON: none HISTORY: Fall, pain CT DLP: 566.4 mGycm Automated exposure control for dose reduction was used. TECHNIQUE: CT scan of the sinuses is performed without contrast, axial images are obtained, coronal r eformatted images are also reviewed. FINDINGS: There appears to be a large anterior left frontal and left supraorbital scalp contusion/hem atoma measuring up to 3.0 cm. No underlying calvarial fracture. Visualized orbits and globes appear i ntact. Slight hyperostosis of calvarium. Degenerative change of the spine with nonspecific white viki er changes. Slight hypertrophic and degenerative change of the spine with multilevel facet arthropath y. IMPRESSION: 1. Large soft tissue hematoma overlying the left frontal bone and preseptal region but no evidence of acute fracture.
--- NOTE | 2020-11-06 14:52 | XR ---
EXAMINATION TYPE: XR shoulder complete LT DATE OF EXAM: 11/06/2020 CLINICAL HISTORY: pain COMPARISON: NONE TECHNIQUE: Three views of the left shoulder are obtained. FINDINGS: There is no acute fracture/dislocation evident. Healed fracture left humeral neck with fi xation plate and screws in place. The acromioclavicular and glenohumeral joint spaces appear within n ormal limits. The visualized ribs are intact and unremarkable. IMPRESSION: 1. There is no acute fracture or dislocation. ICD 10 NO FRACTURE, INITIAL EVALUATION
--- NOTE | 2020-11-06 14:57 | XR ---
EXAMINATION TYPE: XR knee complete bilateral DATE OF EXAM: 11/06/2020 CLINICAL HISTORY: pain TECHNIQUE: Three views of the right knee are obtained. COMPARISON: None. FINDINGS: There is no acute fracture/dislocation. Total knee arthroplasty is in place. Distal femora l bone infarct noted. The overlying soft tissue appears unremarkable. IMPRESSION: There is no acute fracture or dislocation.ICD 10 NO FRACTURE, INITIAL EVALUATION EXAMINATION TYPE: XR knee complete bilateral DATE OF EXAM: 11/06/2020 CLINICAL HISTORY: pain TECHNIQUE: Three views of the left knee are obtained. COMPARISON: None. FINDINGS: There is no acute fracture/dislocation. Total knee arthroplasty is in place. The overlyin g soft tissue appears unremarkable. IMPRESSION: There is no acute fracture or dislocation ICD 10 NO FRACTURE, INITIAL EVALUATION
[2020-11-06] MEDS: SODIUM CHLORIDE 0.9% 1,000 ML IV SCH (17:36)
--- NOTE | 2020-11-06 20:53 | XR ---
EXAMINATION TYPE: XR chest 1V portable DATE OF EXAM: 11/06/2020 COMPARISON: 11/04/2020 HISTORY: Fall. Chest pain TECHNIQUE: Single view FINDINGS: There is coarsening of pulmonary interstitial markings. There is no pneumothorax. There are multiple right-sided rib fractures. There are chest leads. There is left shoulder surgery. There is some pulmonary vascular congestion. I see no definite pleural effusion. IMPRESSION: Right-sided rib fractures with more displacement than previous exam. There is probably so me mild heart failure. Pulmonary interstitial infiltrates and edema. Bony vascularity not significant ly different than last exam.
[2020-11-06] MEDS: ATORVASTATIN 20 MG TAB PO SCH (21:00)
[2020-11-06] MEDS: GABAPENTIN 100 MG CAP PO SCH (21:00)
[2020-11-07] MEDS: HYDROcodone/APAP 5-325MG 1 EACH TAB PO PRN ×4 (03:55→20:24)
[2020-11-07] MEDS: IPRATROPIUM-ALBUTEROL 3 ML NEB INHALATION PRN ×2 (04:09→16:59)
[2020-11-07 07:54] LABS: Anisocytosis Slight; Basophils % (A) 0 %; Eosinophils # (A) 0.4 k/uL (0-0.7); Eosinophils % (A) 4 %; HCT 23.4 % (34.0-46.0); HGB 7.6 gm/dL (11.4-16.0); Hypochromasia Slight; Lymphocytes # (A) 1.5 k/uL (1.0-4.8); Lymphocytes % (A) 17 %; MCH 32.9 pg (25.0-35.0); MCHC 32.6 g/dL (31.0-37.0); MCV 100.9 fL (80.0-100.0); Macrocytosis Slight; Mean Platelet Volume 7.7; Monocytes # (A) 0.4 k/uL (0-1.0); Monocytes % (A) 5 %; Neutrophils % (A) 71 %; Platelet Count 246 k/uL (150-450); RBC 2.32 m/uL (3.80-5.40); RDW 16.9 % (11.5-15.5); WBC 8.4 k/uL (3.8-10.6)
[2020-11-07] MEDS: ESCITALOPRAM 10 MG TAB PO SCH (08:39)
[2020-11-07] MEDS: TORSEMIDE 20 MG TAB PO SCH (08:39)
[2020-11-07] MEDS: LACOSAMIDE 150 MG TABLET PO SCH ×2 (08:41→20:25)
[2020-11-07] MEDS: SPIRONOLACTONE 25 MG TAB PO SCH (08:41)
[2020-11-07] MEDS: LOSARTAN 25 MG TAB PO SCH (08:41)
[2020-11-07] MEDS: ASPIRIN 81 MG PO SCH (08:42)
[2020-11-07] MEDS: FAMOTIDINE 20 MG/2 ML VIAL IV SCH (08:42)
[2020-11-07] MEDS: METOPROLOL SUCCINATE (ER) 25 MG TAB.ER.24H PO SCH (08:42)
--- NOTE | 2020-11-07 10:06 | P.PN ---
Subjective Progress Note Date: 11/06/20 Patient was initially seen by Dr. Suleman Nelson. Please refer to his note for details. Patient initially came to the hospital for a slip and fall in the bathroom. Neurology has signed off. Neurology was reconsulted for another fall in the hospital today, and new onset spasms. Patient apparently suffered from a fall this morning, hitting her face and had a large hematoma about the left eye. The scan of the head after the fall was negative. Patient is having increased confusion at this time. Theref milton neurology was reconsulted. I came to see the patient, and patient's daughter and granddaughter were also present. Patient's daughter states that she fell and broke her left shoulder in 2018 or 2019, which they don't remember. Patient fell in end of August and she does not know what happened. At that time she was found to have atrial flutter, fibrillation with EF of 20%. She underwent cardioversion. Patient then fell just before arrival to the hospital when they were at [place], and she fell and broke her ribs. She was in shower, and fell out of the shower. Today she fell again and does not know what happened. She did not pass out. After this fall, patient is having tremors, confusion, some shakes. Objective - Vital Signs Vital signs: Vital Signs Temp 98.2 F 11/06/20 08:00 Pulse 76 11/06/20 08:59 Resp 22 11/06/20 08:00 BP 137/68 11/06/20 08:00 Pulse Ox 97 11/06/20 08:49 Intake & Output 11/05/20 11/06/20 11/06/20 18:59 06:59 18:59 Intake Total 160 Output Total 1800 Balance 160 -1800 Intake: Intake, IV Titration 160 Amount Sodium Chloride 0.9% 1, 160 000 ml @ 20 mls/hr IV . Q24H JAMES Rx#:[id number] Output: Urine 1800 Other: Voiding Method Toilet Diaper # Voids 2 - Exam GENERAL: The patient is lying in bed and is mild to moderate acute distress. Patient is coughing, congested, appears to be mildly short of breath.. NEUROLOGICAL: Higher mental function: The patient is awake, alert, not well oriented. Patient knows name of her daughter, and her granddaughter, as well as herself. Patient could not tell the current month or the year. She has very slow mentation. No obvious aphasia and no neglect. Patient has a left black eye. She has left frontal hematoma from the fall today. Cranial nerves: The pupils are round, equal and reactive to light and accommodation. Visual reyes are full to confrontation throughout. (Could not check the left eye because of swollen shut from the hematoma). Extraocular movement is intact no nystagmus is noted. Facial sensation is normal to touch throughout. The facial strength is normal throughout. Hearing is moderately decreased bilaterally to hand rub. Tongue is midline and moved [id number] without any difficulty. No dysarthria is noted. Shoulder shrug is normal bilaterally. Motor: Gait is deferred because of patient's pain. The strength is 5 over 5 throughout upper extremities distally and proximally. In the lower extremities her ankles are normal. Hip flexion is weak bilaterally, able to lift only 10 above the bed. Normal tone and bulk. Cerebellum: Normal finger to nose bilaterally. Patient has significant myoclonic jerks of the outstretched hands. Also noted some jerking of her foot when she dorsiflexes at the ankle. Patient appears tremulous. Sensation: Sensation is normal to touch throughout. Reflexes (right/left): 2+ throughout upper while lowers are 1+. Plantars are downgoing bilaterally. - Labs CBC & Chem 7: 11/07/20 06:57 11/06/20 05:56 Labs: Abnormal Lab Results - Last 24 Hours (Table) 11/05/20 11/06/20 11/06/20 Range/Units 06:19 05:56 05:56 RBC 2.30 L (4.10-5.20) X 10*6/uL Hgb 7.3 L (12.0-15.0) g/dL Hct 23.7 L (37.2-46.3) % MCV 103.0 H (80.0-97.0) fL MCHC 30.8 L (32.0-37.0) g/dL RDW 16.4 H (11.5-14.5) % Absolute Nucleated RBC 0.02 H (0.00-0.00) X 10*3/uL Eosinophils # 0.40 H (0.04-0.35) X 10*3/uL NRBC/100 WBC Diff 0.2 H (0.0-0.0) /100 WBCS Est GFR (CKD-EPI)NonAf 53.5 L (60.0-200.0) BUN/Creatinine Ratio 26.00 H (12.00-20.00) Ratio Glucose 121 H (70-110) mg/dL Calcium 8.6 L (8.7-10.3) mg/dL RBC Folate 1,277 H (280 - 791) ng/mL Urine Protein (Negative) Urine Blood (Negative) Urine Bacteria (None) /hpf Urine Mucus (None) /hpf 11/06/20 Range/Units 07:50 RBC (4.10-5.20) X 10*6/uL Hgb (12.0-15.0) g/dL Hct (37.2-46.3) % MCV (80.0-97.0) fL MCHC (32.0-37.0) g/dL RDW (11.5-14.5) % Absolute Nucleated RBC (0.00-0.00) X 10*3/uL Eosinophils # (0.04-0.35) X 10*3/uL NRBC/100 WBC Diff (0.0-0.0) /100 WBCS Est GFR (CKD-EPI)NonAf (60.0-200.0) BUN/Creatinine Ratio (12.00-20.00) Ratio Glucose (70-110) mg/dL Calcium (8.7-10.3) mg/dL RBC Folate (280 - 791) ng/mL Urine Protein Trace H (Negative) Urine Blood Trace H (Negative) Urine Bacteria Occasional H (None) /hpf Urine Mucus Rare H (None) /hpf Assessment and Plan Assessment: * Recurrent falls unclear etiology. Patient had another fall today in the hospital producing left frontal hematoma and black eye, but no intracranial bleed. Patient's MRI of the lumbar spine from 09/01/2020 at [facility] revealed evidence of severe spinal stenosis at L2-3, which may be contributing to the falls. * Patient admitted for acute Fall leading up to multiple rib fractures (this episode seems mechanical fall--she slipped in the shower). Patient has suffered from another fall today in the hospital, in which she fell on her face producing a severe left orbital subcutaneous hematoma and a left black eye. * History of seizure (diagnosed a couple years back and is on Vimpat 150mg 1 tab bid) * Atrial fibrillation on eliquis, currently on hold because of frequent falls. * CHF with ejection fraction 20-25%. * Hyperlipidemia * Hypertension * X tobacco use. Patient smoked half pack per week for long time, quit 2 years ago. Plan: * MRI of the brain, cervical spine and lumbar spine. Patient probably will need orthopedic spine consult. * Stop tramadol, as tramadol can lower seizure threshold. * Check chest x-ray, as patient appears more congested. * Limit amount of opiates. * Check orthostatic vitals to be done. * Patient had seizure workup in the past and she follows up with a neurologist (Dr. Garcia). The daughter will possibly seek another opinion as outpatient about her seizure (whether she truly has seizures or not). I wrote a prescription for 2-1/2 hour EEG as an ambulatory (the plc technician will cooridante it). If the patient is interested she can follow-up with our epilepsy attending (Dr. Bib Hurtado). * Every 4 hours neuro checks * Consulted PT and OT for gait training. * I recommend to avoid any narcotic/sedative that affect the patient mentation if possible. * On cardiac monitoring * Cardiology team is consulted. * Surgery team is on board * We'll defer the rest of the medical management to the primary team. * Discussed with patient's daughter in detail. WORK-UP: MRI of lumbar spine at [facility] on 09/01/2020, which revealed multilevel spondylotic degenerative changes most marked at L2 3 where there is severe spinal stenosis. MRI of the thoracic spine 09/01/2020 showed mild chronic compression deformity of T12, no compression fracture, and no acute compression fracture. Vitamin B12 was 1376 which is within normal limits Serum folate is 16.1 which is within normal limits. TSH is 0.265 to within normal limits HbA1c: 5.3 which is within normal limits Time with Patient: Greater than 30
--- NOTE | 2020-11-07 10:38 | P.PN ---
Subjective This is a pleasant 79-year-old female who presented to the hospital initially on November 03 status post a fall at home while getting out of the bathtub causing right rib fractures. She was evaluated by Dr. Ray initially due to history of afib and was not advised to take anti-coagulation due to falls. She was only recently diagnosed with afib at [facility] earlier this year per her daughter. She does see a command post craftsman there. An EKG was ordered 11/04 and has not been completed unfortunately. Yesterday morning the patient was found on the floor of the bathroom. According to the patient she had gotten up to the bathroom and when she was attempting to stand from the toilet she became weak and fell. There was no LOC, dizziness, palpitations, chest pain, shortness of breath or nausea at the time. Telemetry tracings reviewed extensively, there was no arrhythmia, pauses or bradycardia noted. She appears to be in sinus mechanism with rates between 70 and 80 consistently throughout her hospitalization. Blood pressure currently 134/77 with a heart rate of 78. Blood pressures yesterday morning surrounding the time of the event were 137/68 with a heart rate of 96. Laboratory data reviewed, WBC 8.4, hemoglobin 7.6 and platelets 246. Currently maintained on aspirin 81 mg daily, atorvastatin 20 mg daily, losartan 12.5 mg daily, Toprol 12.5 mg daily, Aldactone 25 mg daily and torsemide 10 mg daily. GENERAL: Well-appearing, well-nourished and in no acute distress. Ecchymosis noted over the left eye. NECK: Supple without JVD or thyromegaly. LUNGS: Breath sounds clear to auscultation bilaterally. Respiration equal and unlabored. No wheezes, rales or rhonchi. HEART: Regular rate and rhythm without murmurs, rubs or gallops. S1 and S2 heard. EXTREMITIES: Normal range of motion, no edema. No clubbing or cyanosis. Peripheral pulses intact. ASSESSMENT Fall, mechanical History of frequent falls Paroxysmal atrial fibrillation not on intermediate accountant anticoagulation secondary to falls Hypertension Dyslipidemia PLAN This most recent fall as well as the fall prior to admission are mechanical in nature and not due to any cardiac arrhythmia or cardiac cause for that matter. Given her history of atrial fibrillation we concur with no anticoagulation given her frequent falls. Repeat 2-D echocardiogram and Doppler study to assess cardiac structure and function. Obtain baseline EKG. Suggest PT/OT evaluation. Ongoing medical management. Nurse Practitioner note has been reviewed, I agree with a documented findings and plan of care. Patient was seen and examined. Objective - Vital Signs Vital signs: Vital Signs Temp 97.7 F 11/06/20 23:51 Pulse 78 11/07/20 04:22 Resp 18 11/06/20 23:51 BP 134/77 11/06/20 23:51 Pulse Ox 100 11/06/20 23:51 Intake & Output 11/06/20 11/07/20 11/07/20 18:59 06:59 18:59 Output Total 300 Balance -300 Output: Urine 300 Other: Voiding Method Toilet Bedside Commode Bedside Commode Incontinent Bedpan External Catheter # Voids 4 - Labs CBC & Chem 7: 11/07/20 06:57 11/06/20 05:56 Labs: Abnormal Lab Results - Last 24 Hours (Table) 11/05/20 11/06/20 11/06/20 Range/Units 06:19 05:56 07:50 RBC (3.80-5.40) m/uL Hgb (11.4-16.0) gm/dL Hct (34.0-46.0) % MCV (80.0-100.0) fL RDW (11.5-15.5) % Est GFR (CKD-EPI)NonAf 53.5 L (60.0-200.0) BUN/Creatinine Ratio 26.00 H (12.00-20.00) Ratio Glucose 121 H (70-110) mg/dL Calcium 8.6 L (8.7-10.3) mg/dL RBC Folate 1,277 H (280 - 791) ng/mL Urine Protein Trace H (Negative) Urine Blood Trace H (Negative) Urine Bacteria Occasional H (None) /hpf Urine Mucus Rare H (None) /hpf 11/07/20 Range/Units 06:57 RBC 2.32 L (3.80-5.40) m/uL Hgb 7.6 L (11.4-16.0) gm/dL Hct 23.4 L (34.0-46.0) % MCV 100.9 H (80.0-100.0) fL RDW 16.9 H (11.5-15.5) % Est GFR (CKD-EPI)NonAf (60.0-200.0) BUN/Creatinine Ratio (12.00-20.00) Ratio Glucose (70-110) mg/dL Calcium (8.7-10.3) mg/dL RBC Folate (280 - 791) ng/mL Urine Protein (Negative) Urine Blood (Negative) Urine Bacteria (None) /hpf Urine Mucus (None) /hpf
--- NOTE | 2020-11-07 12:00 | ECHOF ---
Referral Reason:fall MEASUREMENTS -------- HEIGHT: 167.6 cm WEIGHT: 90.7 kg BP: IVSd: 1.4 cm (0.6 - 1.1) LVIDd: 4.1 cm (3.9 - 5.3) LVPWd: 1.5 cm (0.6 - 1.1) IVSs: 1.5 cm LVIDs: 2.7 cm LVPWs: 1.8 cm Ao Diam: 2.8 cm (2.0 - 3.7) AV Cusp: 0.9 cm (1.5 - 2.6) LA Diam: 3.2 cm (2.7 - 3.8) MV EXCURSION: 14.230 mm (> 18.000) MV EF SLOPE: 65 mm/s (70 - 150) EPSS: 0.7 cm MV E Hawk: 0.90 m/s MV DecT: 218 ms MV A Hawk: 1.30 m/s MV E/A Ratio: 0.69 AV maxP.24 mmHg AV meanP.95 mmHg RAP: 5.00 mmHg RVSP: 43.86 mmHg FINDINGS -------- This was a technically difficult study with suboptimal views. The left ventricular size is normal. There is moderate concentric left ventricular hypertrophy. O verall left ventricular systolic function is mildly impaired with, an EF between 45 - 50 %. Basal i nferoseptal LV wall motion is hypokinetic. Mid inferoseptal LV wall motion is hypokinetic. The right ventricle is normal in size. The left atrial size is normal. The right atrial size is normal. Lumason used Aortic valve is trileaflet and is moderately thickened. There is moderate aortic stenosis present. Peak/mean gradient across the Aortic Valve is 41.24mmHg / 25.95mmHg. The mitral valve is normal. Mild mitral regurgitation is present. The tricuspid valve appears structurally normal. Mild tricuspid regurgitation present. There is m ild pulmonary hypertension. The right ventricular systolic pressure, as measured by Doppler, is 43. 86mmHg. There is no pulmonic regurgitation present. The aortic root size is normal. IVC Not well visulized. There is no pericardial effusion. CONCLUSIONS -------- 1. The left ventricular size is normal. 2. There is moderate concentric left ventricular hypertrophy. 3. Overall left ventricular systolic function is mildly impaired with, an EF between 45 - 50 %. 4. Basal inferoseptal LV wall motion is hypokinetic. 5. Mid inferoseptal LV wall motion is hypokinetic. 6. Aortic valve is trileaflet and is moderately thickened. 7. There is moderate aortic stenosis present. 8. Peak/mean gradient across the Aortic Valve is 41.24mmHg / 25.95mmHg. 9. Mild mitral regurgitation is present. 10. Mild tricuspid regurgitation present. 11. There is mild pulmonary hypertension. 12. The right ventricular systolic pressure, as measured by Doppler, is 43.86mmHg. 13. There is no pulmonic regurgitation present. 14. There is no pericardial effusion. PANEL MAKER: Radha Mercado RDCS
--- NOTE | 2020-11-07 13:15 | P.PN ---
Subjective Progress Note Date: 11/07/20 Patient seen and examined at bedside. Confused. Left-sided supraorbital hematoma is now diffuse around the orbit. Patient's daughter is at bedside. Objective - Vital Signs Vital signs: Vital Signs Temp 98.3 F 11/07/20 11:03 Pulse 74 11/07/20 11:03 Resp 17 11/07/20 11:03 BP 127/72 11/07/20 11:03 Pulse Ox 95 11/07/20 11:03 Intake & Output 11/06/20 11/07/20 11/07/20 18:59 06:59 18:59 Output Total 300 Balance -300 Output: Urine 300 Other: Voiding Method Toilet Bedside Commode Bedside Commode Bedside Commode Incontinent Incontinent Bedpan External Catheter External Catheter # Voids 4 - Constitutional General appearance: Present: no acute distress - Neck Details: Equal chest rise bilaterally, there is a audible wheeze, patient is on oxygen - Gastrointestinal Gastrointestinal Comment(s): Soft, nontender, nondistended, no rebound, no guarding - Labs CBC & Chem 7: 11/07/20 06:57 11/06/20 05:56 Labs: Abnormal Lab Results - Last 24 Hours (Table) 11/05/20 11/07/20 Range/Units 06:19 06:57 RBC 2.32 L (3.80-5.40) m/uL Hgb 7.6 L (11.4-16.0) gm/dL Hct 23.4 L (34.0-46.0) % MCV 100.9 H (80.0-100.0) fL RDW 16.9 H (11.5-15.5) % RBC Folate 1,277 H (280 - 791) ng/mL Assessment and Plan Plan: 79-year-old female with a transfer from outside facility secondary to rib fractures and atrial fibrillation. She was not an activated trauma. Patient is admitted for workup for recent falls. - Patient did have a fall yesterday morning in the bathroom. Hematoma is now diffuse around the left orbit. CT of the head, neck, face showed hematoma with no obvious fracture or intracranial hemorrhage - Patient is high fall risk, this was discussed with nursing staff. Fall precautions are ordered. - Continue treatment For rib fractures with narcotics, Lidoderm patch and incentive spirometry. - Continue holding anticoagulation. - Spent 30 minutes in the room with the patient and the patient's daughter. Patient's daughter once again had multiple questions. All questions from the rossy andrade's daughter were answered. Patient had specific questions on the imaging done at the outside facility. These have been uploaded into the system at this facility. I did recommend that she contact radiology as her questions are specific to their reads. - Patient does have increased confusion today. MRI of the brain has been ordered by neurology. Continue neurology recommendations on the patient's mental status. - Continue medical management for workup on recent recurrent falls - Continue with recommendations from cardiology and holding anticoagulation - No plan for surgical intervention at this time
[2020-11-07] MEDS ORDERED: FUROSEMIDE 10 MG/ML 2 ML VIAL IV ONE (13:16)
--- NOTE | 2020-11-07 13:39 | MR ---
MR brain, MR cervical and lumbar spine without contrast HISTORY:Frequent falls, weakness, AMS Correlation to CT brain 11/06/2020 Multiplanar multisequence imaging obtained through the brain, cervical and lumbar spine. Fast brain protocol was utilized due to patient's inability to remain still during the exam FINDINGS: Brain: There is no restricted diffusion. Cortical atrophy is present. Periventricular, pericallosal, subcortical hyperintensity is scattered and confluent on inversion recovery T2-weighted sequences. Th ere is no evident hemorrhage or hydrocephalus. There are expected vascular flow voids present. Orbits show symmetric appearance. Corpus callosum, pituitary, cervical medullary junction, cerebellopontine angles are within normal limits. Supraorbital low signal on T2, intermediate signal on T1 is consist ent with previously identified hematoma. IMPRESSION: Age-related changes of atrophy and chronic small vessel ischemia. Cervical spine MRI: There is multilevel spondylosis present. Cervical vertebral bodies show preserved height and alignment. Loss of disc height signal is greatest at C5-6, C6-7, C7-T1, there is associat ed spondylosis, endplate discogenic marrow signal change. There is motion on exam. Cervical cord sign al is thought to be maintained on sagittal images, increased signal on T2 within the cord at C4-5 may be artifactual, there may be artifact. C2-3: No significant foraminal encroachment or spinal stenosis, no disc herniation C3-4: Posterior broad-based disc bulge causes mild anterior mass effect on the thecal sac. Uncoverteb ral joint hypertrophy is suspected causing some foraminal encroachment on the left. No significant sp inal stenosis C4-5: No significant spinal stenosis. There is foraminal encroachment left greater than right, there is uncovertebral joint hypertrophy, facet arthropathy greater on the left than on the right, posterio r broad-based disc bulge causes anterior mass effect on the thecal sac C5-6: Bilateral foraminal encroachment is present due to uncovertebral joint hypertrophy. Posterior e xtension endplate disc complex effaces the anterior thecal sac, there is mild to moderate spinal sten osis. C6-7: Posterior extension endplate disc complex results in effacement of anterior thecal sac, mild sp inal stenosis. There is uncovertebral joint hypertrophy, facet arthropathy resulting in right greater than left foraminal encroachment C7-T1: No significant disc herniation. No significant spinal stenosis or foraminal encroachment. IMPRESSION: Multilevel degenerative disc disease, foraminal encroachment or spinal stenosis noted gre atest at C5-6. Lumbar spine MRI: There is multilevel spondylosis, endplate discogenic marrow signal change. Loss of disc height signal is present intervertebral levels with relative preservation at L1-2. Some loss of height is present at L1 centrally and at T12, possible calcified intervertebral disc T11-12. Tarlov c ysts noted over the sacrum. The conus is at L1 shows an unremarkable appearance. There is a mild spin al curvature. Artifact is present of the exam. Cortical cysts suspected in exophytic location in the midpole the right kidney. L5-S1: There is no significant spinal stenosis. No evident disc herniation. Circumferential extension of endplate disc complex encroaches upon the foramina bilaterally. There is some facet arthropathy c hange present. L4-5: Facet arthropathy with hypertrophy ligamentum flavum causes some posterior lateral mass effect on the thecal sac. Posterior extension endplate disc complex effaces the anterior thecal sac. Circumf erential extension endplate disc complex results in bilateral foraminal encroachment. No significant spinal stenosis. L3-4: Posterior broad-based disc bulge causes anterior mass effect on the thecal sac. There is some f acet arthropathy change causing some posterior lateral mass effect on the thecal sac. Circumferential extension endplate disc complex encroaches only mildly on the inferior aspect of the foramina. L2-3: Posterior extension endplate disc complex results in mild to moderate spinal stenosis, is anter ior mass effect on the thecal sac. Circumferential extension endplate disc complex encroaches upon th e inferior aspect of the foramina. Facet arthropathy with hypertrophic changes causes posterior later al mass effect on the thecal sac. L1-2: Posterior extension of broad-based disc bulge causes mild anterior mass effect on the thecal sa c. There is some facet arthropathy change. No significant spinal stenosis or foraminal encroachment. T12-L1: Posterior disc bulge causes only minimal anterior mass effect on the thecal sac. No significa nt spinal stenosis or foraminal encroachment. IMPRESSION: Degenerative disc disease, facet arthropathy, spinal stenosis is greatest at L2-3. There is artifact on the exam.
[2020-11-07] MEDS: HEPARIN SODIUM,PORCINE/PF 5,000 UNIT/0.5 ML SYRINGE SQ SCH ×2 (14:19→16:42)
--- NOTE | 2020-11-07 14:23 | P.CON ---
Consult Note - . Consult date: 11/07/20 Assessment/Plan:: This is a 79-year-old lady with history of frequent falls and recent rib fractures on the right side. We will consulted for pain management and we offered to do paravertebral block on the thoracic area however the patient's daughter wanted to workup the patient's mental status changes first. I tried to answer many questions of the patient's daughter to her satisfaction. We will be happy to be reconsulted for any procedures if the patient continues to have pain. For now the patient is sleeping comfortably and she does not appear to be in pain. I thank you for the consultation
[2020-11-07] MEDS: SODIUM CHLORIDE 0.9% 1,000 ML IV SCH (16:42)
--- NOTE | 2020-11-07 17:02 | P.CNOR ---
History of Present Illness - [facility] Consult date: 11/07/20 Requesting physician: Aric E Sheet Consult reason: other (rib fracture) History of present illness: Patient is a 79-year-old female presenting to the hospital status post fall. Patient fell several days ago on 11/03/2020 while in the bathroom. Patient arrived at this hospital and fell again yesterday while in the bathroom. Patient does complain of some rib pain and x-rays have demonstrated some rib fractures. Imaging of the brain has been negative for any acute stroke/hem orrhage. Patient's daughter is very vocal throughout the encounter and voices her concerns for her mom, the patient. Patient's daughter says her mom normally ambulates independently and is able to pickup dog poop on her own. Patient's daughter says that her mom is not being her normal self at all and even ate a tissue yesterday. 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 Patient denies any knee pain/shoulder plain. Patient denies chest pain, fever, shortness breath, nausea, vomiting, change in vision, loss of bowel/bladder control, saddle anesthesia. Past Medical History Past Medical History: Atrial Fibrillation, Heart Failure, Hyperlipidemia, Hypertension History of Any Multi-Drug Resistant Organisms: None Reported Past Surgical History: Heart Catheterization Additional Past Surgical History / Comment(s): EJ 40% per daughter Smoking Status: Former smoker Past Drug Use History: None Reported Medications and Allergies Home Medications Medication Instructions Recorded Confirmed Type Alendronate Sodium [Binosto] 70 mg PO WEEKLY 11/03/20 11/03/20 History Apixaban [Eliquis] 5 mg PO BID 11/03/20 11/03/20 History Aspirin EC [Ecotrin Low Dose] 81 mg PO DAILY 11/03/20 11/03/20 History Baclofen [Lioresal] 10 mg PO BID PRN 11/03/20 11/03/20 History Escitalopram [Lexapro] 10 mg PO DAILY 11/03/20 11/03/20 History Gabapentin [Neurontin] 200 mg PO HS 11/03/20 11/03/20 History Lacosamide [Vimpat] 150 mg PO BID 11/03/20 11/03/20 History Losartan Potassium [Cozaar] 12.5 mg PO DAILY 11/03/20 11/03/20 History Metoprolol Succinate [Toprol XL] 12.5 mg PO DAILY 11/03/20 11/03/20 History Rosuvastatin Calcium [Crestor] 40 mg PO HS 11/03/20 11/03/20 History Spironolactone [Aldactone] 25 mg PO DAILY 11/03/20 11/03/20 History Torsemide [Demadex] 10 mg PO DAILY 11/03/20 11/03/20 History traMADol HCL 50 mg PO Q8H PRN 11/03/20 11/03/20 History Allergies Allergy/AdvReac Type Severity Reaction Status Date / Time cortisone Allergy Unknown Unknown Verified 11/03/20 18:30 Penicillins Allergy Unknown Unknown Verified 11/03/20 18:29 Physical Examination Inspection: Left eye erythematous, ecchymosis present, about 50% closed. Negative for any open fractures. Negative for any significant areas of ecchymosis, erythema, nodules. Sensation: Sensation is equal, symmetric, bilaterally throughout the exam Palpation: TTP throughout right side of the ribs. Rest of exam NTTP ROM: Bilateral upper extremities full range of motion in elbow extension/flexion wrist flexion/extension, shoulder internal/external rotation of shoulder abduction. Bilateral lower extremities full range of motion on hip flexion/extension, knee flexion/extension, plantar flexion/dorsiflexion. Motor: Bilateral upper extremities 4+ in resisted elbow flexion/extension, wrist flexion/extension, shoulder internal/external rotation, shoulder abduction. Bilateral lower extremities 4+ in resisted knee flexion/extension, hip flexion/extension, plantar flexion/dorsiflexion Neurovascular: Refill under 3 seconds bilaterally in hands. Radial pulses intact, symmetric 2+. Special tests: Negative clonus bilaterally; negative Homans bilaterally; positive Jus's bilaterally. Results - Labs Labs: Abnormal Lab Results - Last 24 Hours (Table) 11/07/20 Range/Units 06:57 RBC 2.32 L (3.80-5.40) m/uL Hgb 7.6 L (11.4-16.0) gm/dL Hct 23.4 L (34.0-46.0) % MCV 100.9 H (80.0-100.0) fL RDW 16.9 H (11.5-15.5) % H & H 11/04/20 11/06/20 11/07/20 Range/Units 08:25 05:56 06:57 Hgb 8.4 L 7.3 L 7.6 L (12.0-15.0) g/dL Hct 27.1 L 23.7 L 23.4 L (37.2-46.3) % Result Diagrams: 11/07/20 06:57 11/06/20 05:56 Assessment and Plan Assessment: 1. Multiple rib fractures 2. Cervical stenosis/spondylosis 3. Multiple medical comorbidities 4. Altered mental status Plan: 1. Rib fractures- no urgent surgical intervention recommended based on findings on imaging. Pain medications as needed 2. Cervical spondylosis/stenosis - MRI of cervical and lumbar spine has been reviewed. No urgent surgical intervention recommended at this time. We'll continue to follow patient while in hospital 3. Appreciate medical management 4. Appreciate consult 5. GI prophylaxis - Colace; Pepcid 6. DVT prophylaxis- Heparin 7. Pain management - [place] 8. Encourage incentive spirometer use 9. PT/OT - weightbearing as tolerated with walker for assistance and assistance needed at bedside - fall risk Time with Patient: Less than 30
[2020-11-07] MEDS: LIDOCAINE 5% PATCH TOPICAL SCH (17:20)
[2020-11-07] MEDS: ATORVASTATIN 20 MG TAB PO SCH (20:25)
[2020-11-07] MEDS: GABAPENTIN 100 MG CAP PO SCH (20:25)
[2020-11-07] MEDS ORDERED: HALOPERIDOL LACTATE 5 MG/ML 1 ML VIAL IM PRN (20:53)
--- NOTE | 2020-11-07 22:27 | XR ---
EXAMINATION TYPE: XR Hip Bilateral and AP pelvis DATE OF EXAM: 11/07/2020 COMPARISON: NONE HISTORY: Pain after fall TECHNIQUE: A single AP view of the pelvis is obtained. Two views of the bilateral hip are obtained. FINDINGS: There is no acute fracture/dislocation evident in the pelvis. The pubic symphysis is main tained with mild degenerative change. Sacroiliac joints appear grossly symmetric. No acute fracture o r dislocation of the bilateral hips. Degenerative changes of the bilateral hips and lumbosacral spine . The overlying soft tissue appears unremarkable. IMPRESSION: There is no acute fracture or dislocation in the pelvis or bilateral hips.
--- NOTE | 2020-11-07 22:35 | P.PN ---
Subjective This is a pleasant 79 years old with multiple medical problems. She was transferred from [facility] for fall in the bathroom while she was taken Eliquis and without loss of consciousness. She presents with right rib fractures on the eighth and ninth per report. Patient today she is awake and alert but confused and little drowsy she is generally weak. She is in the hospital but she could not tell them up the hospital or the city. She knew within year but she could not recognize the month or the date. She could not remember the name of the president but she remembered her daughter name. She still benefit from right-sided chest pain with looks mild and is expected for her rib fracture. Pain management were consulted but daughter declined and management service to do block today. Patient will likely have CHF as her proBNP is normal negative at 767. It is of infection and no need for antibiotics, as there is no fever, no leukocytosis and pro-calcitonin is negative at 0.08. No clinical history of infection Patient with left frontal forehead hematoma underwent left orbit however there is no strabismus, no double vision no blurred vision as per patient. MRI of the brain showing degenerative changes, age-related atrophy. No hemorrhage, no hydrocephalus. Orbital strokes symmetrical in appearance Cervical spine MRI showing degenerative disc disease with facet atrophy and spinal stenosis at L2-L3 Also I spent more than 30 minutes explaining and answered patient daughter questions, I even went over showed her the images and reports of the radiologist R upon her request. All her questions were answered to my best knowledge to her satisfaction, and will follow up with her tomorrow for more questions if she has any Systemic review CONSTITUTIONAL: No fever, no malaise, no fatigue. HEENT: No recent visual problems or hearing problems. Denied any sore throat. CARDIOVASCULAR: No orthopnea, PND, no palpitations, no syncope. PULMONARY: No shortness of breath, no cough, no hemoptysis. GASTROINTESTINAL: No diarrhea, no nausea, no vomiting, no abdominal pain. Normoactive bowel sounds. NEUROLOGICAL: No headaches, no weakness, no numbness. HEMATOLOGICAL: Denies any bleeding or petechiae. 14 point systemic review were checked and were negative except was mentioned above Active Medications Generic Name Dose Route Start Last Admin Trade Name Freq PRN Reason Stop Dose Admin Acetaminophen 650 mg 11/08/20 00:00 Acetaminophen Tab 325 Mg Tab PO Q6HR PRN Pain 1-4 or fever >101 Hydrocodone Bitart/Acetaminophen 1 each 11/07/20 22:18 Hydrocodone/Apap 7.5-325mg 1 Each Tab PO Q6HR PRN Pain Albuterol/Ipratropium 3 ml 11/05/20 04:29 11/07/20 16:59 Ipratropium-Albuterol 3 Ml Neb INHALATION 3 ml RT-QID PRN Administration Shortness Of Breath Or Wheezing Aspirin 81 mg 11/04/20 09:00 11/07/20 08:42 Aspirin 81 Mg PO 81 mg DAILY JAMES Administration Atorvastatin Calcium 20 mg 11/03/20 21:00 11/07/20 20:25 Atorvastatin 20 Mg Tab PO 20 mg HS JAMES Administration Docusate Sodium 100 mg 11/06/20 12:51 Docusate 100 Mg Cap PO DAILY PRN Constipation Escitalopram Oxalate 10 mg 11/04/20 09:00 11/07/20 08:39 Escitalopram 10 Mg Tab PO 10 mg DAILY JAMES Administration Famotidine 20 mg 11/07/20 09:00 11/07/20 08:42 Famotidine 20 Mg/2 Ml Vial IV 20 mg DAILY JAMES Administration Gabapentin 200 mg 11/03/20 21:00 11/07/20 20:25 Gabapentin 100 Mg Cap PO 200 mg HS JAMES Administration Haloperidol Lactate 2 mg 11/07/20 20:53 Haloperidol Lactate 5 Mg/Ml 1 Ml Vial IM ONCE PRN Agitation or Acute Psychosis Heparin Sodium (Porcine) 5,000 unit 11/08/20 09:00 Heparin Sodium,Porcine/Pf 5,000 Unit/0.5 Ml Syringe SQ Q12HR [facility] Sodium Chloride 1,000 mls @ 20 mls/hr 11/03/20 18:00 11/07/20 16:42 Saline 0.9% IV Not Given .Q24H JAMES Lacosamide 150 mg 11/03/20 21:00 11/07/20 20:25 Lacosamide 150 Mg Tablet PO 150 mg BID JAMES Administration Lidocaine 1 patch 11/04/20 10:30 11/07/20 17:20 Lidocaine 5% Patch TOPICAL Not Given DAILY [facility] Protocol Losartan Potassium 12.5 mg 11/04/20 09:00 11/07/20 08:41 Losartan 25 Mg Tab PO 12.5 mg DAILY JAMES Administration Metoprolol Succinate 12.5 mg 11/04/20 09:00 11/07/20 08:42 Metoprolol Succinate (Er) 25 Mg Tab.Er.24h PO 12.5 mg DAILY JAMES Administration Naloxone HCl 0.2 mg 11/03/20 18:00 Naloxone 0.4 Mg/Ml 1 Ml Vial IV Q2M PRN Opioid Reversal Non-Formulary Medication 70 mg 11/10/20 09:00 Alendronate Sodium [Binosto] PO WEEKLY JAMES Quetiapine Fumarate 25 mg 11/08/20 09:00 Quetiapine 25 Mg Tab PO BID JAMES Spironolactone 25 mg 11/04/20 09:00 11/07/20 08:41 Spironolactone 25 Mg Tab PO 25 mg DAILY JAMES Administration Torsemide 10 mg 11/04/20 09:00 11/07/20 08:39 Torsemide 20 Mg Tab PO 10 mg DAILY JAMES Administration Objective - Vital Signs Vital signs: Vital Signs Temp 98.3 F 11/07/20 11:03 Pulse 74 11/07/20 11:03 Resp 17 11/07/20 11:03 BP 127/72 11/07/20 11:03 Pulse Ox 95 11/07/20 11:03 Intake & Output 11/06/20 11/07/20 11/07/20 18:59 06:59 18:59 Output Total 300 Balance -300 Output: Urine 300 Other: Voiding Method Toilet Bedside Commode Bedside Commode Bedside Commode Incontinent Incontinent Bedpan External Catheter External Catheter # Voids 4 - Exam -GENERAL: The patient is awake but lethargic, oriented 1-2 partial, not in any acute distress. Obese HEENT: Pupils are round and equally reacting to light. EOMI. No scleral icterus. No conjunctival pallor. Normocephalic, atraumatic. No pharyngeal erythema. No thyromegaly. Left Frontal hematoma and around the left orbit CARDIOVASCULAR: S1 and S2 present. No murmurs, rubs, or gallops. PULMONARY: Chest is clear to auscultation, no wheezing or crackles. ABDOMEN: Soft, nontender, nondistended, normoactive bowel sounds. No palpable organomegaly. MUSCULOSKELETAL: No joint swelling or deformity. EXTREMITIES: No cyanosis, clubbing, or pedal edema. NEUROLOGICAL: Gross neurological examination did not reveal any focal deficits. SKIN: No rashes. no petechiae. - Labs CBC & Chem 7: 11/07/20 06:57 11/06/20 05:56 Labs: Abnormal Lab Results - Last 24 Hours (Table) 11/05/20 11/07/20 Range/Units 06:19 06:57 RBC 2.32 L (3.80-5.40) m/uL Hgb 7.6 L (11.4-16.0) gm/dL Hct 23.4 L (34.0-46.0) % MCV 100.9 H (80.0-100.0) fL RDW 16.9 H (11.5-15.5) % RBC Folate 1,277 H (280 - 791) ng/mL Assessment and Plan Assessment: Fall without loss of consciousness Metabolic and toxic encephalopathy Right eighth and ninth rib fracture Right chest wall pain and tenderness secondary to above Left frontal forehead hematoma and around left orbit, patient denies blurred vision History of A. fib, she is high-risk of anticoagulation and it was held by inclinometer tester recommendation cardiomyopathy with ejection fraction 45-50% with no overt signs or symptoms of CHF Osteoporosis, on alendronate at home Gen. debility and generalized weakness degenerative disc disease with facet atrophy and spinal stenosis at L2-L3 Possible elements of dementia with behavioral disturbances, need to be followed up as an outpatient and reassessed Plan: This is a pleasant 79 years old female presents with mechanical fall, right chest rib fracture and altered mental status Several consult is for the case including surgery, neurology, cardiology, anesthesia/pain management and orthopedic services No evidence of infection with no leukocytosis, no fever and a Pro-calcitonin is negative, no need for antibiotics Patient risk of falling and Eliquis was held per cardiology's recommendation, I talked to the daughter and she agrees to stop the Eliquis, risks including but not limited to stroke are explained for the patient daughter and she agrees Patient daughter agrees for heparin subcutaneous for DVT prophylaxis but she wants to be chest tube every 12 hours, risk of bleeding or explained and daughter agrees again Hold all on Seroquel for encephalopathy with agitation, limited amount of narcotics per neurologist recommendation. Daughter refused never block Labs and medication were reviewed.. Continue same treatment. Continue with symptomatic treatment. Resume home medication. Monitor lytes and vitals. DVT and GI prophylaxis. Further recommendations as per clinical course of the patient DVT prophylaxis: Subcutaneous heparin GI Prophylaxis: Pepcid PT/OT: Recommended subacute rehab Prognosis is guarded
[2020-11-08 03:36] LABS: African American GFR (CKD) 62.1 (60.0-200.0); Calcium 9.1 mg/dL (8.7-10.3); Magnesium 1.8 mg/dL (1.5-2.4); Non-African American GFR(CKD) 53.5 (60.0-200.0); Potassium 4.2 mmol/L (3.5-5.5)
[2020-11-08] MEDS: HYDROcodone/APAP 7.5-325MG 1 EACH TAB PO PRN ×2 (05:01→11:43)
--- NOTE | 2020-11-08 06:50 | P.CNOR ---
History of Present Illness - [facility] Consult date: 11/07/20 Consult reason: fracture History of present illness: Patient is a 79-year-old female presenting to the hospital status post fall. Patient fell several days ago on 11/03/2020 while in the bathroom. Patient arrived at this hospital and fell again yesterday while in the bathroom. Patient does complain of some rib pain and x-rays have demonstrated some rib fractures. Imaging of the brain has been negative for any acute stroke/hemorrhage. Patient's daughter is very vocal throughout the encounter and voices her concerns for her mom, the patient. Patient's daughter says her mom normally ambulates independently and is able to pickup dog poop on her own. Patient's daughter says that her mom is not being her normal self at all and even ate a tissue yesterday. 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 Patient denies any knee pain/shoulder plain. Patient denies chest pain, fever, shortness breath, nausea, vomiting, change in vision, loss of bowel/bladder control, saddle anesthesia. Past Medical History Past Medical History: Atrial Fibrillation, Heart Failure, Hyperlipidemia, Hypertension History of Any Multi-Drug Resistant Organisms: None Reported Past Surgical History: Heart Catheterization Additional Past Surgical History / Comment(s): EJ 40% per daughter Smoking Status: Former smoker Past Drug Use History: None Reported Medications and Allergies Home Medications Medication Instructions Recorded Confirmed Type Alendronate Sodium [Binosto] 70 mg PO WEEKLY 11/03/20 11/03/20 History Apixaban [Eliquis] 5 mg PO BID 11/03/20 11/03/20 History Aspirin EC [Ecotrin Low Dose] 81 mg PO DAILY 11/03/20 11/03/20 History Baclofen [Lioresal] 10 mg PO BID PRN 11/03/20 11/03/20 History Escitalopram [Lexapro] 10 mg PO DAILY 11/03/20 11/03/20 History Gabapentin [Neurontin] 200 mg PO HS 11/03/20 11/03/20 History Lacosamide [Vimpat] 150 mg PO BID 11/03/20 11/03/20 History Losartan Potassium [Cozaar] 12.5 mg PO DAILY 11/03/20 11/03/20 History Metoprolol Succinate [Toprol XL] 12.5 mg PO DAILY 11/03/20 11/03/20 History Rosuvastatin Calcium [Crestor] 40 mg PO HS 11/03/20 11/03/20 History Spironolactone [Aldactone] 25 mg PO DAILY 11/03/20 11/03/20 History Torsemide [Demadex] 10 mg PO DAILY 11/03/20 11/03/20 History traMADol HCL 50 mg PO Q8H PRN 11/03/20 11/03/20 History Allergies Allergy/AdvReac Type Severity Reaction Status Date / Time cortisone Allergy Unknown Unknown Verified 11/03/20 18:30 Penicillins Allergy Unknown Unknown Verified 11/03/20 18:29 Physical Examination Osteopathic Statement: *. No significant issues noted on an osteopathic structural exam other than those noted in the History and Physical/Consult. Inspection: Left eye erythematous, ecchymosis present, about 50% closed. Negative for any open fractures. Negative for any significant areas of ecchymosis, erythema, nodules. Sensation: Sensation is equal, symmetric, bilaterally throughout the exam Palpation: TTP throughout right side of the ribs. Rest of exam NTTP ROM: Bilateral upper extremities full range of motion in elbow extension/flexion wrist flexion/extension, shoulder internal/external rotation of shoulder abduction. Bilateral lower extremities full range of motion on hip flexion/extension, knee flexion/extension, plantar flexion/dorsiflexion. Motor: Bilateral upper extremities 4+ in resisted elbow flexion/extension, wrist flexion/extension, shoulder internal/external rotation, shoulder abduction. Bilateral lower extremities 4+ in resisted knee flexion/extension, hip flexion/extension, plantar flexion/dorsiflexion Neurovascular: Refill under 3 seconds bilaterally in hands. Radial pulses intact, symmetric 2+. Special tests: Negative clonus bilaterally; negative Homans bilaterally; positive Jus's bilaterally. Results MRI of the cervical spine as well as lumbar spine is reviewed. This demonstr ates multilevel degenerative changes of the cervical and lumbar spine. There is stenosis from C4 through C7. There is slight straightening of the normal cervical lordosis. There is disc degeneration noted and facet hypertrophy here. No myelomalacia is noted at this time. In the lumbar spine there is multilevel degenerative changes as well with disc desiccation as well as disc height loss no fractures seen there is mental hypertrophy as well as facet hypertrophy. There is moderate to severe central stenosis of L2-L3 due to these factors. Overall alignment is fairly well maintained again no fracture dislocation or lesions noted. 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 Inconsequential. X-ray of the chest is reviewed. Right-sided rib fractures noted. No evidence of pneumothorax. - Labs Labs: Abnormal Lab Results - Last 24 Hours (Table) 11/07/20 Range/Units 06:57 RBC 2.32 L (3.80-5.40) m/uL Hgb 7.6 L (11.4-16.0) gm/dL Hct 23.4 L (34.0-46.0) % MCV 100.9 H (80.0-100.0) fL RDW 16.9 H (11.5-15.5) % H & H 11/04/20 11/06/20 11/07/20 Range/Units 08:25 05:56 06:57 Hgb 8.4 L 7.3 L 7.6 L (12.0-15.0) g/dL Hct 27.1 L 23.7 L 23.4 L (37.2-46.3) % Result Diagrams: 11/07/20 06:57 11/07/20 06:57 Assessment and Plan Assessment: 1. Altered mental status 2. Multiple rib fractures s/p ffs 3. Cervical spondylotic myleopathy 4. 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 Multiple medical comorbidities Plan: Appreciate consult 1. Rib fractures- no urgent surgical intervention recommended based on findings on imaging. Pain medications as needed 2. Cervical spondylosis/stenosis - MRI of cervical and lumbar spine has been reviewed. No urgent surgical intervention recommended at this time. We'll continue to follow patient while in hospital. Pts daughter does not want surgery and was somewhat irritated with our presence and consult. We assured her it was to make sure her mother was treated in the best way possible. 3. Medical management 4. Encourage ambulation with assist. 5. GI prophylaxis 6. DVT prophylaxis 7. Pain management 8. Encourage incentive spirometer use 9. PT/OT - weightbearing as tolerated with walker for assistance and assistance needed at bedside - fall risk Spoke at length with daughter about her mothers condition. Currently, I do not see any spinal pathology that would explain her mothers mental status changes. It could however, explain some of her falls or at least a contributing factor to some of her falls due to her cervical stenosis. However, given her current medical state we would not recommend urgent surgery. They agreed as the daughter stated she does not want any surgery done on her mothers spine. Time with Patient: Greater than 30
[2020-11-08 06:55] LABS: Albumin 3.2 g/dL (3.5-5.0); Bilirubin,Unconjugated 0.4 mg/dL (0.0-1.1); Globulin 3.1 g/dL; Total Bilirubin 0.6 mg/dL (0.2-1.3); Total Protein 6.3 g/dL (6.3-8.2)
--- NOTE | 2020-11-08 07:18 | XR ---
EXAMINATION TYPE: XR chest 1V DATE OF EXAM: 11/08/2020 HISTORY: Shortness of breath. COMPARISON: 11/06/2020 TECHNIQUE: Single view of the chest is submitted. FINDINGS: Demonstrated are scattered senescent parenchymal change. Basilar infiltrates persist without significant change. The heart is stable. Hilar and mediastinal structures are within normal limits. Degenerative changes are seen of the dorsal spine. IMPRESSION: 1. Stable chest.
[2020-11-08] MEDS: HEPARIN SODIUM,PORCINE/PF 5,000 UNIT/0.5 ML SYRINGE SQ SCH ×2 (07:47→21:04)
[2020-11-08] MEDS: TORSEMIDE 20 MG TAB PO SCH (07:47)
[2020-11-08] MEDS: ASPIRIN 81 MG PO SCH (07:47)
[2020-11-08] MEDS: METOPROLOL SUCCINATE (ER) 25 MG TAB.ER.24H PO SCH (07:48)
[2020-11-08] MEDS: ESCITALOPRAM 10 MG TAB PO SCH (07:48)
[2020-11-08] MEDS: LACOSAMIDE 150 MG TABLET PO SCH ×2 (07:48→21:00)
[2020-11-08] MEDS: SPIRONOLACTONE 25 MG TAB PO SCH (07:49)
[2020-11-08] MEDS: FAMOTIDINE 20 MG/2 ML VIAL IV SCH (07:49)
[2020-11-08] MEDS: LOSARTAN 25 MG TAB PO SCH (07:49)
--- NOTE | 2020-11-08 08:09 | P.PN ---
Subjective Progress Note Date: 11/08/20 Principal diagnosis: 1. Multiple rib fractures 2. Cervical stenosis/spondylosis Patient is resting comfortably in bed while rounding's morning of bedside. Patient signed right-sided rib pain as well as altered mental status. Patient denies chest pain, fever, shortness breath, nausea, vomiting, change in vision, loss of bowel/bladder control, saddle anesthesia. Objective - Vital Signs Vital signs: Vital Signs Temp 97.8 F 11/08/20 07:42 Pulse 71 11/08/20 07:42 Resp 16 11/08/20 07:42 BP 129/78 11/08/20 07:42 Pulse Ox 100 11/08/20 07:42 Intake & Output 11/07/20 11/08/20 11/08/20 18:59 06:59 18:59 Intake Total 540 Output Total 2000 Balance -1999 540 Intake: Oral 540 Output: Urine 1999 Other: Voiding Method Bedside Commode Bedside Commode Incontinent Incontinent External Catheter External Catheter # Voids 1 - Exam Inspection: Left eye erythematous, ecchymosis present, about 50% closed. Negative for any open fractures. Negative for any significant areas of ecchymosis, erythema, nodules. Sensation: Sensation is equal, symmetric, bilaterally throughout the exam Palpation: TTP throughout right side of the ribs. Rest of exam NTTP ROM: Bilateral upper extremities full range of motion in elbow extension/flexion wrist flexion/extension, shoulder internal/external rotation of shoulder abduction. Bilateral lower extremities full range of motion on hip flexion/extension, knee flexion/extension, plantar flexion/dorsiflexion. Motor: Bilateral upper extremities 4+ in resisted elbow flexion/extension, wrist flexion/extension, shoulder internal/external rotation, shoulder abduction. Bilateral lower extremities 4+ in resisted knee flexion/extension, hip flexion/extension, plantar flexion/dorsiflexion Neurovascular: Refill under 3 seconds bilaterally in hands. Radial pulses intact, symmetric 2+. Special tests: Negative clonus bilaterally; negative Homans bilaterally; positive Jus's bilaterally. - Labs CBC & Chem 7: 11/07/20 06:57 11/07/20 06:57 Labs: Abnormal Lab Results - Last 24 Hours (Table) 11/07/20 11/08/20 Range/Units 06:57 06:30 Est GFR (CKD-EPI)NonAf 53.5 L (60.0-200.0) BUN/Creatinine Ratio 25.00 H (12.00-20.00) Ratio Glucose 128 H (70-110) mg/dL Albumin 3.2 L (3.5-5.0) g/dL Assessment and Plan Assessment: 1. Multiple rib fractures 2. Cervical stenosis/spondylosis 3. Multiple medical comorbidities 4. Altered mental status Plan: 1. Rib fractures- no urgent surgical intervention recommended based on findings on imaging. Pain medications as needed 2. Cervical spondylosis/stenosis - MRI of cervical and lumbar spine has been reviewed. No urgent surgical intervention recommended at this time. We'll continue to follow patient while in hospital 3. Appreciate medical management 4. Appreciate consult 5. GI prophylaxis - Colace; Pepcid 6. DVT prophylaxis- Heparin 7. Pain management - [place] 8. Encourage incentive spirometer use 9. PT/OT - weightbearing as tolerated with walker for assistance and assistance needed at bedside - fall risk Time with Patient: Less than 30
[2020-11-08] MEDS: IPRATROPIUM-ALBUTEROL 3 ML NEB INHALATION PRN (08:56)
[2020-11-08] MEDS ORDERED: QUEtiapine 25 MG TAB PO SCH (09:00)
--- NOTE | 2020-11-08 10:48 | P.PN ---
Subjective Progress Note Date: 11/07/20 11/07/2020: Patient was seen for a follow-up. I was called urgently by the nurse, because the patient's daughter is noticing that patient is getting worse, she is dropping things with the right hand. When I came to the see the patient, her daughter, and granddaughter were both present. On first look, patient appears obviously much better. She is very alert and awake. Her left orbital swelling and hematoma has remarkably improved. She can open her left eye now very well. She is pleasant, communicating much better than yesterday. Patient's daughter believes that she is not better, although the nurse was also present, and agreed that patient has much improved as compared to yesterday. Patient's daughter believes that she perks up, then becomes drowsy, which I informed her that is natural course of delirium, when patient's mental status fluctuates between more awake and drowsiness. Besides, she is in significant pain from rib fractures, which also makes her delirious, inattentive. Patient's daughter believes that her right hand is weak. She believes that she is dropping things out of right hand. When I examined the patient, the strength was very equal on both sides, no pronator drift. Please refer to examination below. 11/06/2020: Patient was initially seen by Dr. Suleman Nelson. Please refer to his note for details. Patient initially came to the hospital for a slip and fall in the bathroom. Neurology has signed off. Neurology was reconsulted for another fall in the hospital today, and new onset spasms. Patient apparently suffered from a fall this morning, hitting her face and had a large hematoma about the left eye. The scan of the head after the fall was negative. Patient is having increased confusion at this time. Therefore neurology was reconsulted. I came to see the patient, and patient's daughter and granddaughter were also present. Patient's daughter states that she fell and broke her left shoulder in 2018 or 2019, which they don't remember. Patient fell in end of August and she does not know what happened. At that time she was found to have atrial flutter, fibrillation with EF of 20%. She underwent cardioversion. Patient then fell just before arrival to the hospital when they were at [place], and she fell and broke her ribs. She was in shower, and fell out of the shower. Today she fell again and does not know what happened. She did not pass out. After this fall, patient is having tremors, confusion, some shakes. Objective - Vital Signs Vital signs: Vital Signs Temp 97.9 F 11/07/20 15:26 Pulse 66 11/07/20 15:26 Resp 16 11/07/20 15:26 BP 95/45 11/07/20 15:26 Pulse Ox 96 11/07/20 15:26 Intake & Output 11/06/20 11/07/20 11/07/20 18:59 06:59 18:59 Output Total 300 Balance -300 Output: Urine 300 Other: Voiding Method Toilet Bedside Commode Bedside Commode Bedside Commode Incontinent Incontinent Bedpan External Catheter External Catheter # Voids 4 - Exam GENERAL: The patient is lying in bed, much more comfortable, in no acute distress. Patient does moan with pain, with certain movements, with pain localizing to the chest wall region. NEUROLOGICAL: Higher mental function: The patient is much more awake, alert, and much better oriented. Patient knows her name, and the month of October, and year 2020. She has prolonged latency to answer questions. Patient could name and repeat. Speech and language functions are intact. No aphasia or dysarthria. Her left frontal hematoma and black eye has much improved. Patient able to open her eyes on both sides. Cranial nerves: The pupils are round, equal and reactive to light and ac commodation. Visual reyes are full to confrontation throughout. Extraocular movement is intact no nystagmus is noted. Facial sensation is normal to touch throughout. The facial strength is normal throughout. Hearing is moderately decreased bilaterally to hand rub. Tongue is midline and moved [id number] without any difficulty. Shoulder shrug is normal bilaterally. Motor: Gait is deferred because of patient's pain. The strength is 5 over 5 throughout upper extremities distally and proximally. I checked the right upper extremity in detail. Patient able to hold the remote control, and other objects in both hands without much difficulty, without dropping the objects. She does have mild myoclonic jerks, which can lead to sometimes dropping out things from the hands. However there was no focal weakness, no change as compared to yesterday. In the lower extremities her ankles are normal. Hip flexion is weak bilaterally, however able to lift off the bed much better than yesterday. Normal tone and bulk. Cerebellum: Normal finger to nose bilaterally. Her myoclonic jerks have improved. Sensation: Sensation is normal to touch throughout. Reflexes (right/left): 2+ throughout upper while lowers are 1+. Plantars are downgoing bilaterally. - Labs CBC & Chem 7: 11/08/20 06:30 11/07/20 06:57 Labs: Abnormal Lab Results - Last 24 Hours (Table) 11/07/20 Range/Units 06:57 RBC 2.32 L (3.80-5.40) m/uL Hgb 7.6 L (11.4-16.0) gm/dL Hct 23.4 L (34.0-46.0) % MCV 100.9 H (80.0-100.0) fL RDW 16.9 H (11.5-15.5) % Assessment and Plan Assessment: * Recurrent falls unclear etiology. Patient presented with a fall in her home, and also had another fall yesterday on 11/06/2020 in the hospital producing left frontal hematoma and black eye, but no intracranial bleed. * Possible concussion from the fall. Improved. * Severe lumbar spinal stenosis at L2-3 level. * Cervical spondylosis, without significant spinal stenosis in the cervical region. * Left orbital subcutaneous hematoma and a left black eye, much improved. * History of seizure (diagnosed a couple years back and is on Vimpat 150mg 1 tab bid) * Atrial fibrillation on eliquis, currently on hold because of fall risk per cardiology. Patient currently in sinus rhythm. * CHF with previous ejection fraction 20-25%, much improved now with current 2-D echo showing EF 45-50%. * Hyperlipidemia * Hypertension * X tobacco use. Patient smoked half pack per week for long time, quit 2 years ago. Plan: * MRI of the brain performed today, shows age-related changes of atrophy and chronic small vessel ischemia. No intracranial hemorrhage. * MRI of the lumbar spine shows degenerative disc disease, facet arthropathy, spinal stenosis, greatest at L2-3 where there is mild to moderate spinal stenosis. On my review, the spinal stenosis is severe in degree. * MRI of the cervical spine shows multilevel degenerative disc disease, foraminal encroachment, mild spinal stenosis at C5 6. No abnormal cord signal. I reviewed all MRIs on the computer. * Patient seen by orthopedic spine, recommending no urgent surgical intervention at this time. Patient's daughter declined any surgical intervention. * Stop tramadol, as tramadol can lower seizure threshold. * Chest x-ray revealed right-sided drift fractures with more displacement than previous exam. There is probably some mild heart failure. Pulmonary interstitial infiltrates and edema. Bony vascularity not significantly different than last exam. * 2-D echo revealed normal left-ventricular size, moderate concentric LVH. EF is between 45-50%. Basal inferior septal, mid inferoseptal left ventricular wall motion is hypokinetic. Aortic valve is trileaflet and is moderately thickened. Moderate aortic stenosis. * Limit amount of opiates. * Patient had seizure workup in the past and she follows up with a neurologist (Dr. Garcia). The daughter will possibly seek another opinion as outpatient about her seizure (whether she truly has seizures or not). I wrote a prescription for 2-1/2 hour EEG as an ambulatory (the hydrometeorological technician will cooridante it). If the patient is interested she can follow-up with our epilepsy attending (Dr. Bib Hurtado). * Consulted PT and OT for gait training. * We'll defer the rest of the medical management to the primary team. * Discussed with patient's daughter in detail. She was concerned that patient is worse. I spent a great amount of time to explain and reassure her daughter that she is better. Patient objectively also appears to be much better on examination as well. Patient's mentation also has improved. WORK-UP: MRI of lumbar spine at [facility] on 09/01/2020, which revealed multilevel spondylotic degenerative changes most marked at L2 3 where there is severe spinal stenosis. MRI of the thoracic spine 09/01/2020 showed mild chronic compression deformity of T12, no compression fracture, and no acute compression fracture. Vitamin B12 was 1376 which is within normal limits Serum folate is 16.1 which is within normal limits. TSH is 0.265 to within normal limits HbA1c: 5.3 which is within normal limits Time with Patient: Greater than 30
--- NOTE | 2020-11-08 11:08 | P.PN ---
Subjective This is a pleasant 79-year-old female who presented to the hospital initially on November 03 status post a fall at home while getting out of the bathtub causing right rib fractures. She was evaluated by Dr. Ray initially due to history of afib and was not advised to take anti-coagulation due to falls. She was only recently diagnosed with afib at [facility] earlier this year per her daughter. She does see a fisher spear there. An EKG was ordered 11/04 and has not been completed unfortunately. Yesterday morning the patient was found on the floor of the bathroom. According to the patient she had gotten up to the bathroom and when she was attempting to stand from the toilet she became weak and fell. There was no LOC, dizziness, palpitations, chest pain, shortness of breath or nausea at the time. Telemetry tracings reviewed extensively, there was no arrhythmia, pauses or bradycardia noted. She appears to be in sinus mechanism with rates between 70 and 80 consistently throughout her hospitalization. Blood pressure currently 134/77 with a heart rate of 78. Blood pressures yesterday morning surrounding the time of the event were 137/68 with a heart rate of 96. Laboratory data reviewed, WBC 8.4, hemoglobin 7.6 and platelets 246. Currently maintained on aspirin 81 mg daily, atorvastatin 20 mg daily, losartan 12.5 mg daily, Toprol 12.5 mg daily, Aldactone 25 mg daily and torsemide 10 mg daily. 11/08/2020 Patient seen and examined sitting up in bed with daughter at the bedside. She has no complaints of chest pain, shortness of breath or palpitations. EKG obtained reveals sinus mechanism with left bundle branch block heart rate of 72. Telemetry tracings indicate persistent sinus mechanism and the previous 24 hours. Blood pressure 129/78 heart rate 71 afebrile maintaining oxygen saturation on nasal cannula. Echocardiogram obtained reveals mildly impaired LV systolic function with ejection fraction 45-50%, basal inferior septal and mid inferoseptal LV wall motion hypokinesia, mild to moderate aortic stenosis with a mean gradient of 25 mmHg, mild MR, mild TR and mild pulmonary hypertension with an RVSP of 43 mmHg GENERAL: Well-appearing, well-nourished and in no acute distress. Ecchymosis noted over the left eye. NECK: Supple without JVD or thyromegaly. LUNGS: Breath sounds clear to auscultation bilaterally. Respiration equal and unlabored. No wheezes, rales or rhonchi. HEART: Regular rate and rhythm with systolic ejection murmur at the base, no rubs or gallops. S1 and S2 heard. EXTREMITIES: Normal range of motion, no edema. No clubbing or cyanosis. Peripheral pulses intact. ASSESSMENT Fall, mechanical Left bundle branch block History of frequent falls Paroxysmal atrial fibrillation not on intermediate anticoagulation secondary to falls Hypertension Dyslipidemia PLAN Clinically stable from a cardiac perspective. Echocardiogram has shown improvement according to the daughter previous EF was 20%. Follows mechanical in nature and not related to cardiac etiology. No anti-coagulation recommended due to frequent falls. Ongoing medical management. We will follow along as needed, follow-up either with fisher spear at [facility] or Dr. Ray upon discharge. Nurse Practitioner note has been reviewed, I agree with a documented findings and plan of care. Patient was seen and examined. Objective - Vital Signs Vital signs: Vital Signs Temp 97.8 F 11/08/20 07:42 Pulse 71 11/08/20 09:09 Resp 18 11/08/20 09:09 BP 129/78 11/08/20 07:42 Pulse Ox 100 11/08/20 08:57 Intake & Output 11/07/20 11/08/20 11/08/20 18:59 06:59 18:59 Intake Total 540 Output Total 2000 Balance -2000 540 Intake: Oral 540 Output: Urine 2000 Other: Voiding Method Bedside Commode Bedside Commode Incontinent Incontinent External Catheter External Catheter # Voids 1 - Labs CBC & Chem 7: 11/07/20 06:57 11/07/20 06:57 Labs: Abnormal Lab Results - Last 24 Hours (Table) 11/07/20 11/08/20 Range/Units 06:57 06:30 Est GFR (CKD-EPI)NonAf 53.5 L (60.0-200.0) BUN/Creatinine Ratio 25.00 H (12.00-20.00) Ratio Glucose 128 H (70-110) mg/dL Albumin 3.2 L (3.5-5.0) g/dL
[2020-11-08] MEDS ORDERED: HYDROcodone/APAP 7.5-325MG 1 EACH TAB PO PRN (11:47)
[2020-11-08 12:52] LABS: Basophils # (A) 0.03 X 10*3/uL (0.00-0.10); Basophils % (A) 0.3 %; Eosinophils # (A) 0.54 X 10*3/uL (0.04-0.35); Eosinophils % (A) 6.2 %; HCT 24.3 % (37.2-46.3); HGB 7.6 g/dL (12.0-15.0); Lymphocytes # (A) 2.17 X 10*3/uL (0.90-5.00); MCH 31.3 pg (27.0-32.0); MCHC 31.3 g/dL (32.0-37.0); Mean Platelet Volume 10.4 fL (9.5-12.2); Monocytes # (A) 0.75 X 10*3/uL (0.20-1.00); Monocytes % (A) 8.7 %; Neutrophils # (A) 5.15 X 10*3/uL (1.80-7.70); Neutrophils % (A) 59.5 %; Platelet Count 253 X 10*3/uL (140-440); RBC 2.43 X 10*6/uL (4.10-5.20); RDW 16.6 % (11.5-14.5); WBC 8.67 X 10*3/uL (4.50-10.00)
--- NOTE | 2020-11-08 13:08 | P.PN ---
Subjective This is a pleasant 79 years old with multiple medical problems. She was transferred from [facility] for fall in the bathroom while she was taken Eliquis and without loss of consciousness. She presents with right rib fractures on the eighth and ninth per report. Patient today she is awake and alert but confused and little drowsy she is generally weak. She is in the hospital but she could not tell them up the hospital or the city. She knew within year but she could not recognize the month or the date. She could not remember the name of the president but she remembered her daughter name. She still benefit from right-sided chest pain with looks mild and is expected for her rib fracture. Pain management were consulted but daughter declined and management service to do block today. Patient will likely have CHF as her proBNP is normal negative at 767. It is of infection and no need for antibiotics, as there is no fever, no leukocytosis and pro-calcitonin is negative at 0.08. No clinical history of infection Patient with left frontal forehead hematoma underwent left orbit however there is no strabismus, no double vision no blurred vision as per patient. MRI of the brain showing degenerative changes, age-related atrophy. No hemorrhage, no hydrocephalus. Orbital strokes symmetrical in appearance Cervical spine MRI showing degenerative disc disease with facet atrophy and spinal stenosis at L2-L3 Also I spent more than 30 minutes explaining and answered patient daughter questions, I even went over showed her the images and reports of the radiologist R upon her request. All her questions were answered to my best knowledge to her satisfaction, and will follow up with her tomorrow for more questions if she has any 11/08/2020 Patient today is more awake and oriented, she knew she is In the hospital but she could not name the ct or the hospital name, with difficulty she could not it's October 2020, she recognize the name of the president. Her breathing is quiet but she still complaining of from right-sided chest wall tenderness. No significant cough. However daughter asking for Mucinex for secretions. Daughter were counseled to use incentive spirometry about 10 times an hour. No nausea vomiting She is able to tolerate 50% of her diet, patient states that she had bowel movements yesterday. However daughter thinks she is constipated. We will add Colace as patient is on Lincoln. Yesterday patient was agitated because she took 6 pills off Lincoln however she received 1 dose of Haldol 2, her down as she was at risk to himself and staff, his morning daughter refused the Seroquel for her mother. He is more calm. We lowered her Lincoln to 7.5 mg every 6 hours, Side effects from narcotics are explained to the patient and daughter. however daughter wants to be increased to every 4 hours. Daughter refused never block by pain specialist to yesterday. Patient also developed postural hypotension most likely secondary to staying in bed and medication. Cardiology team will see the patient on as needed basis. EKG was checked today which showing normal sinus rhythm at 79 with left bundle branch block for 90s. Check bladder scan, discussed with staff Pelvic and hip x-ray are negative. Repeat chest x-ray today looks his stable. Patient denies significant headache, she has mild headache of the hematoma site, no blurred vision or double vision, no squint. Neurologist on the case and MRA of the brain was showing cerebral atrophy with no acute event. Orthopedic team on the case for rib fracture and destructive changes of the spine with spinal stenosis at L2 to L3 they recommended nonurgent surgical intervention or evaluation. Plan discussed in details with the patient and daughter at bedside and all their questions were answered to their satisfaction Objective - Vital Signs Vital signs: Vital Signs Temp 97.8 F 11/08/20 07:42 Pulse 71 11/08/20 09:09 Resp 18 11/08/20 09:09 BP 129/78 11/08/20 07:42 Pulse Ox 100 11/08/20 08:57 Intake & Output 11/07/20 11/08/20 11/08/20 18:59 06:59 18:59 Intake Total 540 Output Total 2000 Balance -1999 540 Intake: Oral 540 Output: Urine 2000 Other: Voiding Method Bedside Commode Bedside Commode Incontinent Incontinent External Catheter External Catheter # Voids 1 - Exam -GENERAL: The patient is awake but this lethargic, oriented 2-3 partial, not in any acute distress. Obese HEENT: Pupils are round and equally reacting to light. EOMI. No scleral icterus. No conjunctival pallor. Normocephalic, atraumatic. No pharyngeal erythema. No thyromegaly. Left Frontal hematoma and around the left orbit CARDIOVASCULAR: S1 and S2 present. No murmurs, rubs, or gallops. -PULMONARY: Chest is clear to auscultation, no wheezing or crackles. Right chest wall tenderness ABDOMEN: Soft, nontender, nondistended, normoactive bowel sounds. No palpable organomegaly. MUSCULOSKELETAL: No joint swelling or deformity. EXTREMITIES: No cyanosis, clubbing, or pedal edema. NEUROLOGICAL: Gross neurological examination did not reveal any focal deficits. SKIN: No rashes. no petechiae. - Labs CBC & Chem 7: 11/08/20 06:30 11/07/20 06:57 Labs: Abnormal Lab Results - Last 24 Hours (Table) 11/07/20 11/08/20 11/08/20 Range/Units 06:57 06:30 06:30 RBC 2.43 L (4.10-5.20) X 10*6/uL Hgb 7.6 L (12.0-15.0) g/dL Hct 24.3 L (37.2-46.3) % MCV 100.0 H (80.0-97.0) fL MCHC 31.3 L (32.0-37.0) g/dL RDW 16.6 H (11.5-14.5) % Eosinophils # 0.54 H (0.04-0.35) X 10*3/uL Est GFR (CKD-EPI)NonAf 53.5 L (60.0-200.0) BUN/Creatinine Ratio 25.00 H (12.00-20.00) Ratio Glucose 128 H (70-110) mg/dL Albumin 3.2 L (3.5-5.0) g/dL Assessment and Plan Assessment: Fall without loss of consciousness Metabolic and toxic encephalopathy, improving Right eighth and ninth rib fracture Right chest wall pain and tenderness secondary to above Left frontal forehead hematoma and around left orbit, patient denies blurred vision History of A. fib, she is high-risk of anticoagulation and it was held by deadener recommendation cardiomyopathy with ejection fraction 45-50% with no overt signs or symptoms of CHF Osteoporosis, on alendronate at home Gen. debility and generalized weakness degenerative disc disease with facet atrophy and spinal stenosis at L2-L3 Possible elements of dementia with behavioral disturbances, need to be followed up as an outpatient and reassessed Plan: This is a pleasant 79 years old female presents with mechanical fall, right chest rib fracture and altered mental status Several consult is for the case including surgery, neurology, cardiology, anesthesia/pain management and orthopedic services No evidence of infection with no leukocytosis, no fever and a Pro-calcitonin is negative, no need for antibiotics Patient risk of falling and Eliquis was held per cardiology's recommendation, I talked to the daughter and she agrees to stop the Eliquis, risks including but not limited to stroke are explained for the patient daughter and she agrees Hold all on Seroquel for encephalopathy with agitation, limited amount of narcotics per neurologist recommendation. Daughter refused never block Continue with incentive spirometry, Mucinex per patient/family request Check bladder scan Check orthostatic vitals. Hold diuretics like torsemide and Aldactone Labs and medication were reviewed.. Continue same treatment. Continue with symptomatic treatment. Resume home medication. Monitor lytes and vitals. DVT and GI prophylaxis. Further recommendations as per clinical course of the patient DVT prophylaxis: Subcutaneous heparin GI Prophylaxis: Pepcid PT/OT: Recommended subacute rehab Prognosis is guarded
[2020-11-08] MEDS ORDERED: guaiFENesin 600 MG TABLET.ER PO PRN (13:24)
--- NOTE | 2020-11-08 13:50 | P.PN ---
Subjective Progress Note Date: 11/08/20 Patient seen and examined at bedside. She seems to be doing much better today. Answering questions appropriately. She is making jokes and lively. Daughter is at bedside with many questions. Objective - Vital Signs Vital signs: Vital Signs Temp 97.8 F 11/08/20 07:42 Pulse 71 11/08/20 09:09 Resp 18 11/08/20 09:09 BP 129/78 11/08/20 07:42 Pulse Ox 100 11/08/20 08:57 Intake & Output 11/07/20 11/08/20 11/08/20 18:59 06:59 18:59 Intake Total 540 Output Total 1999 Balance -1999 540 Intake: Oral 540 Output: Urine 1999 Other: Voiding Method Bedside Commode Bedside Commode Incontinent Incontinent External Catheter External Catheter # Voids 1 - Constitutional General appearance: Present: cooperative, no acute distress - Respiratory Details: No difficulty with respiration, no acute changes from previous exams - Gastrointestinal Gastrointestinal Comment(s): Soft, nontender, nondistended, no rebound, no guarding - Labs CBC & Chem 7: 11/08/20 06:30 11/07/20 06:57 Labs: Abnormal Lab Results - Last 24 Hours (Table) 11/07/20 11/08/20 11/08/20 Range/Units 06:57 06:30 06:30 RBC 2.43 L (4.10-5.20) X 10*6/uL Hgb 7.6 L (12.0-15.0) g/dL Hct 24.3 L (37.2-46.3) % MCV 100.0 H (80.0-97.0) fL MCHC 31.3 L (32.0-37.0) g/dL RDW 16.6 H (11.5-14.5) % Eosinophils # 0.54 H (0.04-0.35) X 10*3/uL Est GFR (CKD-EPI)NonAf 53.5 L (60.0-200.0) BUN/Creatinine Ratio 25.00 H (12.00-20.00) Ratio Glucose 128 H (70-110) mg/dL Albumin 3.2 L (3.5-5.0) g/dL Assessment and Plan Plan: 79-year-old female with a transfer from outside facility secondary to rib fractures and atrial fibrillation. She was not an activated trauma. Patient is admitted for workup for recent falls. - No acute events. Patient's altered mental status appears improved today. She is following with neurology here in the hospital. - Patient is high fall risk, this was discussed with nursing staff. Fall precautions are ordered. - Continue treatment For rib fractures with narcotics, Lidoderm patch and incentive spirometry. - Patient was evaluated by orthopedics. They agree with no surgical intervention for the rib fractures. Patient's daughter is refusing any intervention for any spinal procedure. This is also not recommended at this time. - Continue holding anticoagulation. - Spent 20 minutes in the room with the patient and the patient's daughter. Patient's daughter once again had multiple questions. All questions from the patient's daughter were answered. The patient's daughter is mentioning that she is uncertain of Medical management at this point. She states that she is refusing certain medications, like Seroquel for her mother and would like Mucinex added onto the regimen. This is to be addressed by internal medicine and neurology. - Continue medical management for workup on recent recurrent falls - Continue with recommendations from cardiology and holding anticoagulation - No plan for surgical intervention at this time
[2020-11-08] MEDS: LIDOCAINE 5% PATCH TOPICAL SCH (14:30)
[2020-11-08 14:53] LABS: Appearance,Urine Clear (Clear); Bilirubin,Urine Negative (Negative); Blood,Urine Negative (Negative); Color,Urine Light Yellow; Glucose,Urine (UA) Negative (Negative); Ketones,Urine Negative (Negative); Leukocyte Esterase,Urine Negative (Negative); Nitrite,Urine Negative (Negative); Protein,Urine Negative (Negative); Specific Gravity,Urine 1.011 (1.001-1.035); Urobilinogen,Urine <2.0 mg/dL (<2.0)
[2020-11-08 16:11] LABS: Appearance,Urine Clear (Clear); Bilirubin,Urine Negative (Negative); Blood,Urine Negative (Negative); Color,Urine Light Yellow; Glucose,Urine (UA) Negative (Negative); Ketones,Urine Negative (Negative); Leukocyte Esterase,Urine Negative (Negative); Nitrite,Urine Negative (Negative); Protein,Urine Negative (Negative); Specific Gravity,Urine 1.011 (1.001-1.035); Urobilinogen,Urine <2.0 mg/dL (<2.0)
[2020-11-08] MEDS: SODIUM CHLORIDE 0.9% 1,000 ML IV SCH (19:03)
[2020-11-08] MEDS: DOCUSATE 100 MG CAP PO SCH (21:00)
[2020-11-08] MEDS: GABAPENTIN 100 MG CAP PO SCH (21:00)
[2020-11-08] MEDS: ATORVASTATIN 20 MG TAB PO SCH (21:00)
[2020-11-08] MEDS: HYDROcodone/APAP 5-325MG 1 EACH TAB PO PRN (21:01)
[2020-11-09] MEDS: HYDROcodone/APAP 5-325MG 1 EACH TAB PO PRN ×5 (01:42→22:51)
[2020-11-09] MEDS: IPRATROPIUM-ALBUTEROL 3 ML NEB INHALATION PRN (05:54)
[2020-11-09] MEDS: METOPROLOL SUCCINATE (ER) 25 MG TAB.ER.24H PO SCH (07:18)
[2020-11-09] MEDS: DOCUSATE 100 MG CAP PO SCH ×2 (07:18→21:36)
[2020-11-09] MEDS: LOSARTAN 25 MG TAB PO SCH (07:18)
[2020-11-09] MEDS: FAMOTIDINE 20 MG TAB PO SCH (07:18)
[2020-11-09] MEDS: LIDOCAINE 5% PATCH TOPICAL SCH (07:19)
[2020-11-09] MEDS: ASPIRIN 81 MG PO SCH (07:19)
[2020-11-09] MEDS: HEPARIN SODIUM,PORCINE/PF 5,000 UNIT/0.5 ML SYRINGE SQ SCH ×2 (07:19→21:36)
[2020-11-09] MEDS: LACOSAMIDE 150 MG TABLET PO SCH ×2 (07:19→21:36)
[2020-11-09] MEDS: ESCITALOPRAM 10 MG TAB PO SCH (07:19)
--- NOTE | 2020-11-09 10:22 | P.PN ---
Subjective Progress Note Date: 11/08/20 11/08/2020: Patient is even more alert and awake. Her mentation has improved. Patient's daughter and granddaughter were also present today. Patient states her pain is gone down to 4-5/10. Although at night and gets worse. Patient has received pain medication 1-1/2 hours before, therefore she is slightly slow, but was even better before her pain medication, as per patient's statement. Patient had a bath today. She was sitting in the chair. She is able to hold staff in her hands much better. She denies any significant pain in the back, only in the lower back. Headache is 4/10. 11/07/2020: Patient was seen for a follow-up. I was called urgently by the nurse, because the patient's daughter is noticing that patient is getting worse, she is dropping things with the right hand. When I came to the see the patient, her daughter, and granddaughter were both present. On first look, patient appears obviously much better. She is very alert and awake. Her left orbital swelling and hematoma has remarkably improved. She can open her left eye now very well. She is pleasant, communicating much better than yesterday. Patient's daughter believes that she is not better, although the nurse was also present, and agreed that patient has much improved as compared to yesterday. Patient's daughter believes that she perks up, then becomes drowsy, which I informed her that is natural course of delirium, when patient's mental status fluctuates between more awake and drowsiness. Besides, she is in significant pain from rib fractures, which also makes her delirious, inattentive. Patient's daughter believes that her right hand is weak. She believes that she is dropping things out of right hand. When I examined the patient, the strength was very equal on both sides, no pronator drift. Please refer to examination below. 11/06/2020: Patient was initially seen by Dr. Suleman Nelson. Please refer to his note for details. Patient initially came to the hospital for a slip and fall in the bathroom. Neurology has signed off. Neurology was reconsulted for another fall in the hospital today, and new onset spasms. Patient apparently suffered from a fall this morning, hitting her face and had a large hematoma about the left eye. The scan of the head after the fall was negative. Patient is having increased confusion at this time. Therefore neurology was reconsulted. I came to see the patient, and patient's daughter and granddaughter were also present. Patient's daughter states that she fell and broke her left shoulder in 2018 or 2019, which they don't remember. Patient fell in end of August and she does not know what happened. At that time she was found to have atrial flutter, fibrillation with EF of 20%. She underwent cardioversion. Patient then fell just before arrival to the hospital when they were at [facility], and she fell and broke her ribs. She was in shower, and fell out of the shower. Today she fell again and does not know what happened. She did not pass out. After this fall, patient is having tremors, confusion, some shakes. Objective - Vital Signs Vital signs: Vital Signs Temp 97.8 F 11/09/20 07:16 Pulse 84 11/09/20 07:16 Resp 16 11/09/20 07:16 BP 140/77 11/09/20 07:16 Pulse Ox 99 11/09/20 07:16 Intake & Output 11/08/20 11/09/20 11/09/20 18:59 06:59 18:59 Intake Total 840 236 Output Total 900 Balance -60 236 Intake: Intake, IV Titration 240 Amount Sodium Chloride 0.9% 1, 240 000 ml @ 20 mls/hr IV . Q24H [facility] Rx#:[id number] Oral 600 236 Output: Urine 900 Other: Voiding Method Bedside Commode Bedside Commode Incontinent Incontinent External Catheter External Catheter # Voids 200 - Exam GENERAL: The patient is lying in bed, much more comfortable, in no acute distress. Patient is not moaning anymore. Patient knows it is October and the year is . Her speech and language functions are normal. Still slightly slow mentation but better than yesterday. Detail examination not checked. - Labs CBC & Chem 7: 11/08/20 06:30 11/07/20 06:57 Labs: Abnormal Lab Results - Last 24 Hours (Table) 11/08/20 Range/Units 06:30 RBC 2.43 L (4.10-5.20) X 10*6/uL Hgb 7.6 L (12.0-15.0) g/dL Hct 24.3 L (37.2-46.3) % MCV 100.0 H (80.0-97.0) fL MCHC 31.3 L (32.0-37.0) g/dL RDW 16.6 H (11.5-14.5) % Eosinophils # 0.54 H (0.04-0.35) X 10*3/uL Assessment and Plan Assessment: * Recurrent falls unclear etiology. Patient presented with a fall in her home, and also had another fall yesterday on 11/06/2020 in the hospital producing left frontal hematoma and black eye, but no intracranial bleed. * Possible concussion from the fall. Improved. * Severe lumbar spinal stenosis at L2-3 level. * Cervical spondylosis, without significant spinal stenosis in the cervical region. * Left orbital subcutaneous hematoma and a left black eye, much improved. * History of seizure (diagnosed a couple years back and is on Vimpat 150mg 1 tab bid) * Atrial fibrillation on eliquis, currently on hold because of fall risk per cardiology. Patient currently in sinus rhythm. * CHF with previous ejection fraction 20-25%, much improved now with current 2-D echo showing EF 45-50%. * Hyperlipidemia * Hypertension * X tobacco use. Patient smoked half pack per week for long time, quit 2 years ago. Plan: * MRI of the brain performed 11/07/2020, shows age-related changes of atrophy and chronic small vessel ischemia. No intracranial hemorrhage. * MRI of the lumbar spine shows degenerative disc disease, facet arthropathy, spinal stenosis, greatest at L2-3 where there is mild to moderate spinal stenosis. On my review, the spinal stenosis is severe in degree. I have it reviewed by Dr. Castellano, who agrees that the spinal stenosis is more than mild to moderate. * MRI of the cervical spine shows multilevel degenerative disc disease, denzel inal encroachment, mild spinal stenosis at C5 6. No abnormal cord signal. I reviewed all MRIs on the computer. * Patient seen by orthopedic spine, recommending no urgent surgical intervention at this time. Patient's daughter declined any surgical intervention. * Stop tramadol, as tramadol can lower seizure threshold. * Chest x-ray revealed right-sided drift fractures with more displacement than previous exam. There is probably some mild heart failure. Pulmonary interstitial infiltrates and edema. Bony vascularity not significantly different than last exam. * 2-D echo revealed normal left-ventricular size, moderate concentric LVH. EF is between 45-50%. Basal inferior septal, mid inferoseptal left ventricular wall motion is hypokinetic. Aortic valve is trileaflet and is moderately thickened. Moderate aortic stenosis. * Limit amount of opiates. * Patient had seizure workup in the past and she follows up with a neurologist (Dr. Garcia). The daughter will possibly seek another opinion as outpatient about her seizure (whether she truly has seizures or not). I wrote a prescription for 2-1/2 hour EEG as an ambulatory (the fire technician will cooridante it). If the patient is interested she can follow-up with our epilepsy attending (Dr. Bib Hurtado). * Consulted PT and OT for gait training. * We'll defer the rest of the medical management to the primary team. * Discussed with patient's daughter in detail. She agreed that patient is getting better day by day. * We will check x-ray of the thoracic spine to rule out thoracic vertebral fracture. WORK-UP: MRI [facility] lumbar spine [facility] on 09/01/2020, which revealed multilevel spondylotic degenerative changes most marked at L2 3 where there is severe spinal stenosis. MRI of the thoracic spine 09/01/2020 showed mild chronic compression deformity of T12, no compression fracture, and no acute compression fracture. Vitamin B12 was 1376 which is within normal limits Serum folate is 16.1 which is within normal limits. TSH is 0.265 to within normal limits HbA1c: 5.3 which is within normal limits
--- NOTE | 2020-11-09 12:02 | P.PN ---
Subjective Progress Note Date: 11/09/20 Principal diagnosis: 1. Multiple rib fractures 2. Cervical stenosis/spondylosis Patient is resting comfortably in bed while rounding's morning of bedside. Patient signed right-sided rib pain as well as altered mental status. Patient denies chest pain, fever, shortness breath, nausea, vomiting, change in vision, loss of bowel/bladder control, saddle anesthesia. Objective - Vital Signs Vital signs: Vital Signs Temp 97.8 F 11/09/20 07:16 Pulse 84 11/09/20 07:16 Resp 16 11/09/20 07:16 BP 140/77 11/09/20 07:16 Pulse Ox 99 11/09/20 07:16 Intake & Output 11/08/20 11/09/20 11/09/20 18:59 06:59 18:59 Intake Total 840 236 Output Total 900 Balance -60 236 Intake: Intake, IV Titration 240 Amount Sodium Chloride 0.9% 1, 240 000 ml @ 20 mls/hr IV . Q24H [facility] Rx#:[id number] Oral 600 236 Output: Urine 900 Other: Voiding Method Bedside Commode Bedside Commode Incontinent Incontinent External Catheter External Catheter # Voids 200 - Exam Inspection: Left eye erythematous, ecchymosis present, about 50% closed. Negative for any open fractures. Negative for any significant areas of ecchymosis, erythema, nodules. Sensation: Sensation is equal, symmetric, bilaterally throughout the exam Palpation: TTP throughout right side of the ribs. Rest of exam NTTP ROM: Bilateral upper extremities full range of motion in elbow extension/flexion wrist flexion/extension, shoulder internal/external rotation of shoulder abduction. Bilateral lower extremities full range of motion on hip flexion/extension, knee flexion/extension, plantar flexion/dorsiflexion. Motor: Bilateral upper extremities 4+ in resisted elbow flexion/extension, wrist flexion/extension, shoulder internal/external rotation, shoulder abduction. Bilateral lower extremities 4+ in resisted knee flexion/extension, hip flexion/extension, plantar flexion/dorsiflexion Neurovascular: Refill under 3 seconds bilaterally in hands. Radial pulses intact, symmetric 2+. Special tests: Negative clonus bilaterally; negative Homans bilaterally; positive Jus's bilaterally. - Labs CBC & Chem 7: 11/08/20 06:30 11/07/20 06:57 Labs: Abnormal Lab Results - Last 24 Hours (Table) 11/08/20 Range/Units 06:30 RBC 2.43 L (4.10-5.20) X 10*6/uL Hgb 7.6 L (12.0-15.0) g/dL Hct 24.3 L (37.2-46.3) % MCV 100.0 H (80.0-97.0) fL MCHC 31.3 L (32.0-37.0) g/dL RDW 16.6 H (11.5-14.5) % Eosinophils # 0.54 H (0.04-0.35) X 10*3/uL Assessment and Plan Assessment: 1. Multiple rib fractures 2. Cervical stenosis/spondylosis 3. Multiple medical comorbidities 4. Altered mental status Plan: 1. Rib fractures- no urgent surgical intervention recommended based on findings on imaging. Pain medications as needed. Patient is orthopedically stable for discharge. Please do not hesitate to contact us for any further questions. 2. Cervical spondylosis/stenosis - MRI of cervical and lumbar spine has been reviewed. No urgent surgical intervention recommended at this time. Patient is orthopedically stable for discharge. Please do not hesitate to contact us for any further questions. 3. Appreciate medical management 4. Appreciate consult 5. GI prophylaxis - Colace; Pepcid 6. DVT prophylaxis- Heparin 7. Pain management - [place] 8. Encourage incentive spirometer use 9. PT/OT - weightbearing as tolerated with walker for assistance and assistance needed at bedside - fall risk Time with Patient: Less than 30
--- NOTE | 2020-11-09 12:27 | P.PN ---
Subjective Progress Note Date: 11/09/20 Patient seen and examined at bedside. Sitting in chair with daughter at bedside. Answering questions appropriately. Affect is normal. Much improved mental status over the past 2 days. Complains of headache and right-sided pain over the fracture sites. Objective - Vital Signs Vital signs: Vital Signs Temp 97.8 F 11/09/20 07:16 Pulse 84 11/09/20 07:16 Resp 16 11/09/20 07:16 BP 140/77 11/09/20 07:16 Pulse Ox 99 11/09/20 07:16 Intake & Output 11/08/20 11/09/20 11/09/20 18:59 06:59 18:59 Intake Total 840 236 Output Total 900 Balance -60 236 Intake: Intake, IV Titration 240 Amount Sodium Chloride 0.9% 1, 240 000 ml @ 20 mls/hr IV . Q24H [facility] Rx#:[id number] Oral 600 236 Output: Urine 900 Other: Voiding Method Bedside Commode Bedside Commode Incontinent Incontinent External Catheter External Catheter # Voids 200 - Constitutional General appearance: Present: cooperative, no acute distress - EENT EENT Comment(s): Ecchymosis around the left orbit, no significant change from previous few days. - Respiratory Details: No difficulty with respiration - Gastrointestinal Gastrointestinal Comment(s): Soft, nontender - Labs CBC & Chem 7: 11/08/20 06:30 11/07/20 06:57 Labs: Abnormal Lab Results - Last 24 Hours (Table) 11/08/20 Range/Units 06:30 RBC 2.43 L (4.10-5.20) X 10*6/uL Hgb 7.6 L (12.0-15.0) g/dL Hct 24.3 L (37.2-46.3) % MCV 100.0 H (80.0-97.0) fL MCHC 31.3 L (32.0-37.0) g/dL RDW 16.6 H (11.5-14.5) % Eosinophils # 0.54 H (0.04-0.35) X 10*3/uL Assessment and Plan Plan: 79-year-old female with a transfer from outside facility secondary to rib fractures and atrial fibrillation. She was not an activated trauma. Patient is admitted for workup for recent falls. - No acute events. Patient's altered mental status appears improved today. She is following with neurology here in the hospital. - Patient is high fall risk, this was discussed with nursing staff. Fall precautions are ordered. - Continue treatment For rib fractures with narcotics, Lidoderm patch and incentive spirometry. - Patient was evaluated by orthopedics. They agree with no surgical intervention for the rib fractures. Patient's daughter is refusing any intervention for any spinal procedure. This is also not recommended at this time. - Continue holding anticoagulation. - Per nursing, patient's daughter is requesting new medical team. - Continue medical management for workup on recent recurrent falls - Continue with recommendations from cardiology and holding anticoagulation - No plan for surgical intervention at this time - Will sign off as patient has been followed for multiple days without any requirement for surgical intervention. Significant amount of time was spent with the patient and patient's daughter. All questions were answered. Call if necessary
[2020-11-09] MEDS: ACETAMINOPHEN TAB 325 MG TAB PO PRN ×2 (13:32→21:39)
[2020-11-09 14:24] VITALS: BMI 32.3
--- NOTE | 2020-11-09 15:00 | XR ---
EXAMINATION TYPE: XR thoracic spine complete DATE OF EXAM: 11/09/2020 Comparison: 11/06/2020 Clinical History: 79-year-old female Falls rule out thoracic compression fracture Findings: Multiple right-sided rib fracture deformities ICD-9 11/06/2020. 12 rib-bearing thoracic vertebral bodi es. Prominent endplate spondylosis throughout. There is also osteopenia. No obvious malalignment or f rank vertebral compression collapse is identified allowing for the extensive changes of dish.. Impression: Extensive changes of DISH throughout the visualized spine and osteopenia limiting the assessment. No obvious vertebral compression collapse or kim malalignment. Multiple known right-sided rib fracture deformities.
[2020-11-09] MEDS: SODIUM CHLORIDE 0.9% 1,000 ML IV SCH (16:53)
[2020-11-09] MEDS: ATORVASTATIN 20 MG TAB PO SCH (21:35)
[2020-11-09] MEDS: GABAPENTIN 100 MG CAP PO SCH (21:36)
[2020-11-10] MEDS: ACETAMINOPHEN TAB 325 MG TAB PO PRN ×2 (03:27→11:42)
--- NOTE | 2020-11-10 08:56 | P.PN ---
Subjective This is a pleasant 79-year-old female who presented to the hospital initially on November 03 status post a fall at home while getting out of the bathtub causing right rib fractures. She was evaluated by Dr. Ray initially due to history of afib and was not advised to take anti-coagulation due to falls. She was only recently diagnosed with afib at [facility] earlier this year per her daughter. She does see a therapeutic strategy lead there. An EKG was ordered 11/04 and has not been completed unfortunately. Yesterday morning the patient was found on the floor of the bathroom. According to the patient she had gotten up to the bathroom and when she was attempting to stand from the toilet she became weak and fell. There was no LOC, dizziness, palpitations, chest pain, shortness of breath or nausea at the time. Telemetry tracings reviewed extensively, there was no arrhythmia, pauses or bradycardia noted. She appears to be in sinus mechanism with rates between 70 and 80 consistently throughout her hospitalization. Blood pressure currently 134/77 with a heart rate of 78. Blood pressures yesterday morning surrounding the time of the event were 137/68 with a heart rate of 96. Laboratory data reviewed, WBC 8.4, hemoglobin 7.6 and platelets 246. Currently maintained on aspirin 81 mg daily, atorvastatin 20 mg daily, losartan 12.5 mg daily, Toprol 12.5 mg daily, Aldactone 25 mg daily and torsemide 10 mg daily. 11/10/2020 We have been requested to see the patient again regarding orthostatic changes. Review of the records indicate the lowest blood pressure reading associated with checking orthostatics is 97/64. This was taken yesterday afternoon and the patient was apparently asymptomatic. Her fall a few days back was clearly mechanical due to reaching for the bathroom cord and falling forward. There has been no arrhythmia on telemetry. Currently blood pressure standing is 147/78 heart rate 82 afebrile and maintaining oxygen saturation on nasal cannula. Currently maintained on losartan 12.5 mg daily and toprol 12.5 mg daily. GENERAL: Well-appearing, well-nourished and in no acute distress. Ecchymosis noted over the left eye. NECK: Supple without JVD or thyromegaly. LUNGS: Breath sounds clear to auscultation bilaterally. Respiration equal and unlabored. No wheezes, rales or rhonchi. HEART: Regular rate and rhythm with systolic ejection murmur at the base, no rubs or gallops. S1 and S2 heard. EXTREMITIES: Normal range of motion, no edema. No clubbing or cyanosis. Peripheral pulses intact. ASSESSMENT Fall, mechanical Left bundle branch block History of frequent falls Paroxysmal atrial fibrillation not on termite treater helper anticoagulation secondary to falls Hypertension Dyslipidemia PLAN The minor drop in blood pressure is not clinically significant enough to be causing her to fall. Clearly the fall in the bathroom she stated she was reaching for the call light cord and fell forward. Apply KATHY hose bilaterally. Advised her and her daughter to rise slowly from sitting to standing. Aggressive PT/OT treatment for strength and coordination daily. Clinically stable from a cardiac perspective. No anti-coagulation recommended due to frequent falls. Ongoing medical management. We will follow along as needed, follow-up either with therapeutic strategy lead at [facility] or Dr. Ray upon discharge. Nurse Practitioner note has been reviewed, I agree with a documented findings and plan of care. Patient was seen and examined. Objective - Vital Signs Vital signs: Vital Signs Temp 97.8 F 11/09/20 20:00 Pulse 82 11/10/20 07:40 Resp 17 11/10/20 07:40 BP 160/76 11/10/20 02:00 Pulse Ox 98 11/10/20 02:00 Intake & Output 11/09/20 11/10/20 11/10/20 18:59 06:59 18:59 Intake Total 472 200 Output Total 300 Balance 472 -100 Weight 90.718 kg Intake: Oral 472 200 Output: Urine 200 Stool 100 Other: Voiding Method Bedside Commode Incontinent Incontinent Incontinent External Catheter External Catheter External Catheter # Voids 2 2 - Labs CBC & Chem 7: 11/08/20 06:30 11/07/20 06:57
[2020-11-10] MEDS ORDERED: ALENDRONATE SODIUM 70 MG PO SCH (09:00)
[2020-11-10] MEDS: FAMOTIDINE 20 MG TAB PO SCH (09:08)
[2020-11-10] MEDS: LOSARTAN 25 MG TAB PO SCH (09:08)
[2020-11-10] MEDS: HYDROcodone/APAP 5-325MG 1 EACH TAB PO PRN ×2 (09:08→15:52)
[2020-11-10] MEDS: ASPIRIN 81 MG PO SCH (09:08)
[2020-11-10] MEDS: HEPARIN SODIUM,PORCINE/PF 5,000 UNIT/0.5 ML SYRINGE SQ SCH (09:09)
[2020-11-10] MEDS: LACOSAMIDE 150 MG TABLET PO SCH (09:09)
[2020-11-10] MEDS: METOPROLOL SUCCINATE (ER) 25 MG TAB.ER.24H PO SCH (09:09)
[2020-11-10] MEDS: LIDOCAINE 5% PATCH TOPICAL SCH (09:09)
[2020-11-10] MEDS: ESCITALOPRAM 10 MG TAB PO SCH (09:09)
[2020-11-10] MEDS: DOCUSATE 100 MG CAP PO SCH (09:09)
[2020-11-10 09:26] LABS: Basophils # (A) 0.02 X 10*3/uL (0.00-0.10); Basophils % (A) 0.3 %; Eosinophils # (A) 0.36 X 10*3/uL (0.04-0.35); Eosinophils % (A) 4.9 %; HCT 23.6 % (37.2-46.3); HGB 7.4 g/dL (12.0-15.0); Lymphocytes # (A) 1.42 X 10*3/uL (0.90-5.00); Lymphocytes % (A) 19.2 %; MCH 31.9 pg (27.0-32.0); MCHC 31.4 g/dL (32.0-37.0); MCV 101.7 fL (80.0-97.0); Monocytes # (A) 0.61 X 10*3/uL (0.20-1.00); Monocytes % (A) 8.2 %; Neutrophils # (A) 4.98 X 10*3/uL (1.80-7.70); Neutrophils % (A) 67.1 %; Platelet Count 277 X 10*3/uL (140-440); RBC 2.32 X 10*6/uL (4.10-5.20); RDW 16.9 % (11.5-14.5); WBC 7.41 X 10*3/uL (4.50-10.00)
--- NOTE | 2020-11-10 09:36 | P.PN ---
Subjective Progress Note Date: 11/09/20 11/09/2020: Patient was seen for a follow-up. Patient's daughter and granddaughters were also present. Patient's daughter admits that patient is slowly improving and is better even as compared to yesterday. Patient denies any headache at this time. Sometimes the headache goes up to 8/10, but resolves with Tylenol. Patient is able to walk a little. Patient offers no new complaints. 11/08/2020: Patient is even more alert and awake. Her mentation has improved. Patient's daughter and granddaughter were also present today. Patient states her pain is gone down to 4-5/10. Although at night and gets worse. Patient has received pain medication 1-1/2 hours before, therefore she is slightly slow, but was even better before her pain medication, as per patient's statement. Patient had a bath today. She was sitting in the chair. She is able to hold staff in her hands much better. She denies any significant pain in the back, only in the lower back. Headache is 4/10. 11/07/2020: Patient was seen for a follow-up. I was called urgently by the nurse, because the patient's daughter is noticing that patient is getting worse, she is dropping things with the right hand. When I came to the see the patient, her daughter, and granddaughter were both present. On first look, patient appears obviously much better. She is very alert and awake. Her left orbital swelling and hematoma has remarkably improved. She can open her left eye now very well. She is pleasant, communicating much better than yesterday. Patient's daughter believes that she is not better, although the nurse was also present, and agreed that patient has much improved as compared to yesterday. Patient's daughter believes that she perks up, then becomes drowsy, which I informed her that is natural course of delirium, when patient's mental status fluctuates between more awake and drowsiness. Besides, she is in significant pain from rib fractures, which also makes her delirious, inattentive. Patient's daughter believes that her right hand is weak. She believes that she is dropping things out of right hand. When I examined the patient, the strength was very equal on both sides, no pronator drift. Please refer to examination below. 11/06/2020: Patient was initially seen by Dr. Suleman Nelson. Please refer to his note for details. Patient initially came to the hospital for a slip and fall in the bathroom. Neurology has signed off. Neurology was reconsulted for another fall in the hospital today, and new onset spasms. Patient apparently suffered from a fall this morning, hitting her face and had a large hematoma about the left eye. The scan of the head after the fall was negative. Patient is having increased confusion at this time. Therefore neurology was reconsulted. I came to see the patient, and patient's daughter and granddaughter were also present. Patient's daughter states that she fell and broke her left shoulder in 2018 or 2019, which they don't remember. Patient fell in end of August and she does not know what happened. At that time she was found to have atrial flutter, fibrillation with EF of 20%. She underwent cardioversion. Patient then fell just before arrival to the hospital when they were at [place], and she fell and broke her ribs. She was in shower, and fell out of the shower. Today she fell again and does not know what happened. She did not pass out. After this fall, patient is having tremors, confusion, some shakes. Objective - Vital Signs Vital signs: Vital Signs Temp 98.2 F 11/10/20 09:11 Pulse 72 11/10/20 09:11 Resp 18 11/10/20 09:11 BP 133/76 11/10/20 09:11 Pulse Ox 93 L 11/10/20 09:11 Intake & Output 11/09/20 11/10/20 11/10/20 18:59 06:59 18:59 Intake Total 472 200 Output Total 300 Balance 472 -100 Weight 90.718 kg Intake: Oral 472 200 Output: Urine 200 Stool 100 Other: Voiding Method Bedside Commode Incontinent Incontinent Incontinent External Catheter External Catheter External Catheter # Voids 2 2 - Exam GENERAL: The patient is lying in bed, much more comfortable, in no acute distress. Patient is not moaning anymore. Her left orbital hematoma and left neck I has much improved. Detail testing deferred. Patient is much more interactive. Still with slightly slow mentation. - Labs CBC & Chem 7: 11/10/20 04:57 11/07/20 06:57 Labs: Abnormal Lab Results - Last 24 Hours (Table) 11/10/20 Range/Units 04:57 RBC 2.32 L (4.10-5.20) X 10*6/uL Hgb 7.4 L (12.0-15.0) g/dL Hct 23.6 L (37.2-46.3) % MCV 101.7 H (80.0-97.0) fL MCHC 31.4 L (32.0-37.0) g/dL RDW 16.9 H (11.5-14.5) % Eosinophils # 0.36 H (0.04-0.35) X 10*3/uL Assessment and Plan Assessment: * Recurrent falls unclear etiology. Patient presented with a fall in her home, and also had another fall on 11/06/2020 in the hospital producing left frontal hematoma and black eye, but no intracranial bleed. * Probable concussion from the fall. Improved. * Severe lumbar spinal stenosis at L2-3 level. * Cervical spondylosis, without significant spinal stenosis in the cervical region. * Left orbital subcutaneous hematoma and a left black eye, much improved. * History of seizure (diagnosed a couple years back and is on Vimpat 150mg 1 tab bid) * Atrial fibrillation on eliquis, currently on hold because of fall risk per cardiology. Patient currently in sinus rhythm. * CHF with previous ejection fraction 20-25%, much improved now with current 2-D echo showing EF 45-50%. * Hyperlipidemia * Hypertension * X tobacco use. Patient smoked half pack per week for long time, quit 2 years ago. Plan: * MRI of the brain performed 11/07/2020, shows age-related changes of atrophy and chronic small vessel ischemia. No intracranial hemorrhage. * MRI of the lumbar spine shows degenerative disc disease, facet arthropathy, spinal stenosis, greatest at L2-3 where there is mild to moderate spinal stenosis. On my review, the spinal stenosis is severe in degree. I have it reviewed by Dr. Castellano, who agrees that the spinal stenosis is moderate to severe in degree. Please see addendum of the report. * MRI of the cervical spine shows multilevel degenerative disc disease, f oraminal encroachment, mild spinal stenosis at C5 6. No abnormal cord signal. I reviewed all MRIs on the computer. * Patient seen by orthopedic spine, recommending no urgent surgical intervention at this time. Patient's daughter declined any surgical intervention. * X-ray of the thoracic spine shows extensive changes of DISH throughout the visualized spine and osteopenia limiting the assessment. No obvious vertebral compression collapse or kim malalignment. Multiple known right-sided rib fr acture deformities. Patient is on Fosamax. * Stop tramadol, as tramadol can lower seizure threshold. * 2-D echo revealed normal left-ventricular size, moderate concentric LVH. EF is between 45-50%. Basal inferior septal, mid inferoseptal left ventricular wall motion is hypokinetic. Aortic valve is trileaflet and is moderately thickened. Moderate aortic stenosis. * Patient had seizure workup in the past and she follows up with a neurologist (Dr. Garcia). The daughter will possibly seek another opinion as outpatient about her seizure (whether she truly has seizures or not). I wrote a prescri ption for 2-1/2 hour EEG as an ambulatory (the darkroom technician will cooridante it). If the patient is interested she can follow-up with our epilepsy attending (Dr. Bib Hurtado). * Consulted PT and OT for gait training. * We'll defer the rest of the medical management to the primary team. * Discussed with patient's daughter in detail. She agreed that patient is getting better day by day. * Neurologically clear. WORK-UP: MRI of lumbar spine at [facility] on 09/01/2020, which revealed multilevel spondylotic degenerative changes most marked at L2 3 where there is severe spinal stenosis. MRI of the thoracic spine 09/01/2020 showed mild chronic compression deformity of T12, no compression fracture, and no acute compression fracture. Vitamin B12 was 1376 which is within normal limits Serum folate is 16.1 which is within normal limits. TSH is 0.265 to within normal limits HbA1c: 5.3 which is within normal limits
[2020-11-10 10:10] LABS: African American GFR (CKD) 70.5 (60.0-200.0); Anion Gap 8.6 mmol/L (4.00-12.00); BUN/Creat Ratio 22.22 Ratio (12.00-20.00); Calcium 9.2 mg/dL (8.7-10.3); Carbon Dioxide 31.4 mmol/L (21.6-31.8); Non-African American GFR(CKD) 60.8 (60.0-200.0)
--- NOTE | 2020-11-10 13:39 | P.PN ---
Progress Note - Text Progress Note Date: 11/10/20 11/10/2020 Patient will require a wheelchair upon discharge to complete ADLs that is unable to be done with a cane or walker secondary to unsteady gait and frequent falls with generalized debility and weakness. Patient does have her daughter who is her caregiver in the home that will be able to propel her. Patient also requiring a hospital bed that requires her had to be elevated 30 at all times secondary to her congestive heart failure. Patient is room confined and will require a bedside commode in the home. Case management provided with prescriptions.
[2020-11-10 15:30] VITALS: BP 106/51; PULSE 76; RESP 16; TEMP 98.5
--- NOTE | 2020-11-11 15:27 | P.PN ---
Subjective Progress Note Date: 11/10/20 11/10/2020: Patient was seen, and her daughter was also present. Patient states she is doing very well. Her daughter states that she is "in and out of it, but not nearly as bad as the first day". Patient's daughter states that patient is "not normal". Patient at that point replied to her daughter "neither are you". Seems like patient's daughter overjudges her mother, who apparently does not appreciate. Telemetry monitoring showing sinus rhythm. Patient denies headache, but when patient's daughter insists, she rates it at 4/10. She complains of 5/10 pain in the right side of the chest. Patient is otherwise all ready to go home. 11/09/2020: Patient was seen for a follow-up. Patient's daughter and granddaughters were also present. Patient's daughter admits that patient is slowly improving and is better even as compared to yesterday. Patient denies any headache at this time. Sometimes the headache goes up to 8/10, but resolves with Tylenol. Patient is able to walk a little. Patient offers no new complaints. 11/08/2020: Patient is even more alert and awake. Her mentation has improved. Patient's daughter and granddaughter were also present today. Patient states her pain is gone down to 4-5/10. Although at night and gets worse. Patient has received pain medication 1-1/2 hours before, therefore she is slightly slow, but was even better before her pain medication, as per patient's statement. Patient had a bath today. She was sitting in the chair. She is able to hold staff in her hands much better. She denies any significant pain in the back, only in the lower back. Headache is 4/10. 11/07/2020: Patient was seen for a follow-up. I was called urgently by the debbie rasmussen, because the patient's daughter is noticing that patient is getting worse, she is dropping things with the right hand. When I came to the see the patient, her daughter, and granddaughter were both present. On first look, patient appears obviously much better. She is very alert and awake. Her left orbital swelling and hematoma has remarkably improved. She can open her left eye now very well. She is pleasant, communicating much better than yesterday. Patient's daughter believes that she is not better, although the nurse was also present, and agreed that patient has much improved as compared to yesterday. Patient's daughter believes that she perks up, then becomes drowsy, which I i nformed her that is natural course of delirium, when patient's mental status fluctuates between more awake and drowsiness. Besides, she is in significant pain from rib fractures, which also makes her delirious, inattentive. Patient's daughter believes that her right hand is weak. She believes that she is dropping things out of right hand. When I examined the patient, the strength was very equal on both sides, no pronator drift. Please refer to examination below. 11/06/2020: Patient was initially seen by Dr. Suleman Nelson. Please refer to his note for details. Patient initially came to the hospital for a slip and fall in the bathroom. Neurology has signed off. Neurology was reconsulted for another fall in the hospital today, and new onset spasms. Patient apparently suffered from a fall this morning, hitting her face and had a large hematoma about the left eye. The scan of the head after the fall was negative. Patient is having increased confusion at this time. Therefore neurology was reconsulted. I came to see the patient, and patient's daughter and granddaughter were also present. Patient's daughter states that she fell and broke her left shoulder in 2018 or 2019, which they don't remember. Patient fell in end of August and she does not know what happened. At that time she was found to have atrial flutter, fibrillation with EF of 20%. She underwent cardioversion. Patient then fell just before arrival to the hospital when they were at [place], and she fell and broke her ribs. She was in shower, and fell out of the shower. Today she fell again and does not know what happened. She did not pass out. After this fall, patient is having tremors, confusion, some shakes. Objective - Vital Signs Vital signs: Vital Signs Temp 98.5 F 11/10/20 14:00 Pulse 76 11/10/20 14:00 Resp 16 11/10/20 14:00 BP 106/51 11/10/20 14:00 Pulse Ox 96 11/10/20 14:00 Intake & Output 11/09/20 11/10/20 11/10/20 18:59 06:59 18:59 Intake Total 472 200 Output Total 300 Balance 472 -100 Weight 90.718 kg Intake: Oral 472 200 Output: Urine 200 Stool 100 Other: Voiding Method Bedside Commode Incontinent Incontinent Incontinent External Catheter External Catheter External Catheter # Voids 2 2 - Exam GENERAL: The patient is sitting in the recliner, appears very comfortable, fully alert and awake. Her left orbital hematoma and left neck I has much improved. Patient is now fully interactive. Patient's memory seems to have much improved. Her daughter is concerned about her memory. She asked the patient what she had for breakfast. Patient applied "[employer] coffee and a bagel". Patient's daughter then started asking, what she had for lunch. Patient was able to tell some, but she continues to ask more and more, at which point patient appears to get slightly upset. Mentation appears almost back to normal. Patient's upper extremities were not checked. In the lower extremities, her ankles, toes are normal. Ankle dorsiflexion, inversion and eversion are normal. Knee extension normal. Hip flexion is at 5-, with some giveaway weakness because of pain. - Labs CBC & Chem 7: 11/10/20 04:57 11/10/20 04:57 Labs: Abnormal Lab Results - Last 24 Hours (Table) 11/10/20 11/10/20 Range/Units 04:57 04:57 RBC 2.32 L (4.10-5.20) X 10*6/uL Hgb 7.4 L (12.0-15.0) g/dL Hct 23.6 L (37.2-46.3) % MCV 101.7 H (80.0-97.0) fL MCHC 31.4 L (32.0-37.0) g/dL RDW 16.9 H (11.5-14.5) % Eosinophils # 0.36 H (0.04-0.35) X 10*3/uL BUN/Creatinine Ratio 22.22 H (12.00-20.00) Ratio Glucose 143 H (70-110) mg/dL Assessment and Plan Assessment: * Recurrent falls unclear etiology. Patient presented with a fall in her home, and also had another fall on 11/06/2020 in the hospital producing left frontal hematoma and black eye, but no intracranial bleed. * Probable concussion from the fall. Improved. Patient still has mild postconcussive headaches. * Severe lumbar spinal stenosis at L2-3 level. * Cervical spondylosis, without significant spinal stenosis in the cervical region. * History of seizure (diagnosed a couple years back and is on Vimpat 150mg 1 tab bid) * Atrial fibrillation on eliquis, currently on hold because of fall risk per cardiology. Patient currently in sinus rhythm. * CHF with previous ejection fraction 20-25%, much improved now with current 2-D echo showing EF 45-50%. * Hyperlipidemia * Hypertension * X tobacco use. Patient smoked half pack per week for long time, quit 2 years ago. Plan: * Patient's mentation has much improved. Patient is ready for discharge. Patient recommended to use walker and one assist every time that she walks to prevent any further falls. Patient will get home physical therapy. * MRI of the brain performed 11/07/2020, shows age-related changes of atrophy and chronic small vessel ischemia. No intracranial hemorrhage. * MRI of the lumbar spine shows degenerative disc disease, facet arthropathy, spinal stenosis, greatest at L2-3 where there is mild to moderate spinal stenosis. On my review, the spinal stenosis is severe in degree. I have it reviewed by Dr. Castellano, who agrees that the spinal stenosis is moderate to severe in degree. Please see addendum of the report. * MRI of the cervical spine shows multilevel degenerative disc disease, foraminal encroachment, mild spinal stenosis at C5 6. No abnormal cord signal. I reviewed all MRIs on the computer. * Patient seen by orthopedic spine, recommending no urgent surgical intervention at this time. Patient's daughter declined any surgical intervention. * X-ray of the thoracic spine shows extensive changes of DISH throughout the visualized spine and osteopenia limiting the assessment. No obvious vertebral compression collapse or kim malalignment. Multiple known right-sided rib fracture deformities. Patient is on Fosamax. * Stop tramadol, as tramadol can lower seizure threshold. * 2-D echo revealed normal left-ventricular size, moderate concentric LVH. EF is between 45-50%. Basal inferior septal, mid inferoseptal left ventricular wall motion is hypokinetic. Aortic valve is trileaflet and is moderately thickened. Moderate aortic stenosis. * Patient had seizure workup in the past and she follows up with a neurologist (Dr. Garcia). The daughter will possibly seek another opinion as outpatient about her seizure (whether she truly has seizures or not). I wrote a prescription for 2-1/2 hour EEG as an ambulatory (the ekg/ecg technician will cooridante it). If the patient is interested she can follow-up with our epilepsy attending (Dr. Bib Hurtado). * Neurologically clear. WORK-UP: MRI of lumbar spine at [facility] on 09/01/2020, which revealed mult ilevel spondylotic degenerative changes most marked at L2 3 where there is severe spinal stenosis. MRI of the thoracic spine 09/01/2020 showed mild chronic compression deformity of T12, no compression fracture, and no acute compression fracture. Vitamin B12 was 1376 which is within normal limits Serum folate is 16.1 which is within normal limits. TSH is 0.265 to within normal limits HbA1c: 5.3 which is within normal limits
== END 2020-11-10 17:30 | disposition home health service (06) | DRG 183 ==
LOC: SUPCPDRO 16:43 → EC 16:43 → 6NMEDSUR 18:35 → 4SSUR 19:43 → OBSVTOIN 11-06 12:32
PROVIDERS: ADMIT Hospitalist; ATTEND Hospitalist
DX: S22.41XA Multiple fractures of ribs, right side, initial encounter for closed fracture (principal); G92 Toxic encephalopathy; S06.0X9A Concussion with loss of consciousness of unspecified duration, initial encounter; I42.9 Cardiomyopathy, unspecified; I48.20 Chronic atrial fibrillation, unspecified; I50.20 Unspecified systolic (congestive) heart failure; I48.92 Unspecified atrial flutter; Z79.899 Other long term (current) drug therapy; Z87.891 Personal history of nicotine dependence; Z91.81 History of falling; Z96.612 Presence of left artificial shoulder joint; Z96.653 Presence of artificial knee joint, bilateral; Z79.83 Long term (current) use of bisphosphonates; Z79.82 Long term (current) use of aspirin; Z79.01 Long term (current) use of anticoagulants; Z68.32 Body mass index [BMI] 32.0-32.9, adult; E66.9 Obesity, unspecified; E78.5 Hyperlipidemia, unspecified; I11.0 Hypertensive heart disease with heart failure; G89.29 Other chronic pain; R56.9 Unspecified convulsions; R29.6 Repeated falls; M81.0 Age-related osteoporosis without current pathological fracture; I27.20 Pulmonary hypertension, unspecified; M48.061 Spinal stenosis, lumbar region without neurogenic claudication; M50.30 Other cervical disc degeneration, unspecified cervical region; M48.02 Spinal stenosis, cervical region; I95.1 Orthostatic hypotension; G44.309 Post-traumatic headache, unspecified, not intractable; I35.0 Nonrheumatic aortic (valve) stenosis; I44.7 Left bundle-branch block, unspecified; I48.0 Paroxysmal atrial fibrillation; S00.12XA Contusion of left eyelid and periocular area, initial encounter; Y92.239 Unspecified place in hospital as the place of occurrence of the external cause
CPT/HCPCS: 70450; 70486; 70551; 71045; 71046; 72072; 72125; 72141; 72148; 73521; 80048; 80053; 80076; 81001; 81003; 82607; 82746; 82747; 83036; 83735; 83880; 84145; 84443; 85025; 93005; 93306; 94640; 94760; 99285